=== PATIENT | female | born 1970 | race Caucasian/White ===

== ENCOUNTER 2023-07-04 08:18 | Emergency (ER) | payer OTHER ==
--- NOTE | 2021-05-23 11:32 | Consultation - Surgery ---
History of Present Illness History of Present Illness Patient Consulted On(samantha/time) 05/23/21 11:28 Allergies and Home Medications Allergies Coded Allergies: No Known Drug Allergies (Unverified , 05/23/21) Review of Systems-General Constitutional: no symptoms reported, see HPI; No chills; diaphoresis EENTM: see HPI, no symptoms reported; No ear discharge, No hearing loss, No ear pain, No blurred vision, No double vision, No eye pain, No tearing, No vision loss, No dental problems, No hoarseness, No mouth pain, No mouth swelling, No epistaxis, No nose congestion, No nose pain, No throat pain, No throat swelling, No other Respiratory: no symptoms reported, see HPI; No cough, No dyspnea on exertion, No hemoptysis, No orthopnea, No phlegm, No short of breath, No stridor, No wheezing, No other Physical Exam-General Problems Physical Exam Vital Signs Vital Signs - First Documented 05/22/21 05/22/21 10:16 10:39 Temp 37.5 Pulse 22 Resp 24 B/P (MAP) 130/90 Pulse Ox 99 O2 Delivery Room Air O2 Flow Rate 2.00 Capillary Refill : HEENT: PERRL/EOMI, normal ENT inspection, TMs normal, pharynx normal; No scler al icterus (R), No scleral icterus (L), No pale conjunctivae (R), No pale conjunctivae (L), No photophobia, No TM abnormal (R), No TM abnormal (L), No pharyngeal erythema, No tonsillar exudate, No other Neck: non-tender, full range of motion, supple, normal inspection Diagnosis/Problems Diagnosis/Problems (1) Fall Status: Acute (2) Hip fracture, left Status: Acute Qualifiers: (3) Anemia Status: Chronic Qualifiers: Qualified Codes: D50.0 - Iron deficiency anemia secondary to blood loss (chronic) Clinical Quality Measures Sepsis: Within 3hrs of presentation: Admin fluids, Admin 30ml/kg IBW due to BMI>30, Admin ABX ANIBAL HARRIS MD May 23, 2021 11:32
--- NOTE | 2021-06-06 09:27 | Wound Care Assessment ---
Wound Care Assessment Date Seen by Provider: Jun 06, 2021 Time Seen by Provider: 09:24 Past Medical History: Admits Diabetes Type I, Admits Myocardial Infarction (ppop[l), Admits Raynaud's Diseaase; Denies Diabetes Type II, Denies Deep Vein Thrombosis, Denies Heart Disease, Denies Lupas, Denies Peripheral Artery Disease, Denies Scleroderma, Denies Cancer, Treaments Review of Systems General: Chills, Night Sweats, Fatigue; No Malaise, No Appetite, No Other HEENT: Head Aches, Visual Changes; No Eye Pain, No Ear Pain, No Dysphasia Pulmonary: Dyspnea, Cough, Pleuritic Chest Pain Exam Capillary Refill : JUJU COELHO MD Jun 06, 2021 09:27
--- NOTE | 2021-06-06 09:32 | Progress Note ---
Subjective Time Seen by Provider: 09:32 Review of Systems General: Chills, Night Sweats, Fatigue; No Malaise, No Appetite, No Other HEENT: Head Aches, Visual Changes; No Eye Pain, No Ear Pain, No Dysphasia Pulmonary: Dyspnea, Cough, Pleuritic Chest Pain Objective Exam Last Set of Vital Signs Capillary Refill : Assessment/Plan Assessment/Plan Assess & Plan/Chief Complaint + \' Clinical Quality Measures Sepsis: Within 3hrs of presentation: Admin fluids, Admin 30ml/kg IBW due to BMI>30, Admin ABX, Blood cultures prior to ABX's Diagnosis/Problems Diagnosis/Problems (1) Fall Status: Acute Qualifiers: Qualified Codes: W19.XXXA - Unspecified fall, initial encounter (2) Hip fracture, left Status: Acute Qualifiers: (3) Wound dehiscence (4) Wound abscess (5) Anemia Status: Chronic Qualifiers: Qualified Codes: 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
--- NOTE | 2021-06-14 00:50 | Consultation ---
History of Present Illness History of Present Illness Patient Consulted On(samantha/time) 06/14/21 00:47 Date Seen by Provider: Jun 14, 2021 Time Seen by Provider: 00:50 Reason for Visit: POST DOWNTIME TESTING FOR PDOC TEMPLATE FUNCTIONALITY History of Present Illness N/A Allergies and Home Medications Allergies Coded Allergies: No Known Drug Allergies (Unverified , 05/23/21) Patient Home Medication List Home Medication List Reviewed: Yes Review of Systems-General Constitutional: No diaphoresis, No malaise EENTM: No double vision, No tearing, No nose congestion Respiratory: No orthopnea, No phlegm, No stridor Cardiovascular: No palpitations, No syncope Gastrointestinal: No nausea, No vomiting Genitourinary: No dysuria, No hematuria Skin: No rash Psychiatric/Neurological: See HPI; Denies Anxiety, Denies Depressed, Denies Pre-Existing Deficit, Denies Other All Other Systems Reviewed Negative Unless Noted: Yes Physical Exam-General Problems Physical Exam Vital Signs Capillary Refill : General Appearance: WD/WN, no apparent distress Eyes: Bilateral Eye Normal Inspection, Bilateral Eye PERRL, Bilateral Eye EOMI HEENT: PERRL/EOMI, normal ENT inspection, TMs normal, pharynx normal Neck: non-tender, full range of motion, supple, normal inspection Respiratory: chest non-tender, lungs clear, normal breath sounds, no res piratory distress, no accessory muscle use Cardiovascular: normal peripheral pulses, regular rate, rhythm, no edema, no gallop, no JVD, no murmur Peripheral Pulses: 2+ Carotid (R), 2+ Carotid (L), 2+ Femoral (R), 2+ Femoral (L), 2+ Dorsalis Pedis (R), 2+ Left Dors-Pedis (L), 2+ Radial Pulses (R), 2+ Radial Pulses (L) Gastrointestinal: normal bowel sounds, non tender, soft, no organomegaly, no pulsatile mass Back: normal inspection, no CVA tenderness, no vertebral tenderness Extremities: normal range of motion, non-tender, normal inspection, no pedal edema, no calf tenderness, normal capillary refill, pelvis stable Neurologic/Psychiatric: workers compensation consultant II-XII nml as tested, no motor/sensory deficits, alert, normal mood/affect, oriented x 3 Reflexes: 3+ Bicep (R), 3+ Bicep (L), 3+ Tricep (R), 3+ Tricep (L), 3+ Knee (R), 3+ Knee (L), 3+ Ankle (R), 3+ Ankle (L) Skin: normal color, warm/dry, cyanosis, cool, diaphoresis Lymphatic: no adenopathy ALETHA PA MD Jun 14, 2021 00:50
--- NOTE | 2021-07-23 10:28 | Progress Note - Surgery ---
Subjective Date Seen by a Provider: Jul 23, 2021 Time Seen by a Provider: 10:24 Subjective/Events-last exam TESTING Review of Systems General: Chills; No Night Sweats HEENT: Head Aches; No Visual Changes, No Eye Pain; Ear Pain; No Dysphasia, No Sinus Congestion, No Post Nasal Drip, No Sore Throat, No Other Pulmonary: No Dyspnea, No Cough, No Pleuritic Chest Pain, No Other Cardiovascular: No: Chest Pain, Palpitations, Orthopnea, Paroxysmal Noc. Dyspnea, Edema, Lt Headedness, Other Gastrointestinal: Nausea, Vomiting, Diarrhea; No: Abdominal Pain, Constipation, Melena, Hematochezia, Other Musculoskeletal: neck pain, shoulder pain; No: other, arm pain, back pain, hand pain, leg pain, foot pain Neurological: Weakness, Numbness, Confusion; No: Incoordination, Change in speech, Seizures, Other Objective Exam Capillary Refill : General Appearance: No Apparent Distress, WD/WN; No Anxious, No Chronically ill, No Cachetic, No Mild Distress, No Moderate Distress, No Obese, No Severe Distress, No Thin, No Other HEENT: No Moist Mucous Membranes, No Pale Conjunctivae (L), No Pale Conju nctivae (R) Respiratory: Chest Non Tender (TESTING), Normal Breath Sounds (TESTING), No Accessory Muscle Use Peripheral Pulses: 2+ Carotid (R), 2+ Carotid (L), 2+ Femoral (R), 2+ Femoral (L), 2+ Dorsalis Pedis (R), 2+ Left Dors-Pedis (L), 2+ Radial Pulses (R), 2+ Radial Pulses (L) Gastrointestinal: normal bowel sounds, non tender, soft, no organomegaly, no pulsatile mass Assessment/Plan Assessment/Plan Assessment/Plan SEE PROBLEM LIST+ \' Diagnosis/Problems Diagnosis/Problems (1) Hip fracture, left Status: Acute Assessment & Plan: TO OR IN AM Qualifiers: (2) Fall Status: Acute Assessment & Plan: BED ALARM ORDERED FOR NURSING Qualifiers: Qualified Codes: W19.XXXA - Unspecified fall, initial encounter (3) S/P appy Status: Acute Assessment & Plan: TESTING (4) Gall bladder inflammation (5) Anemia Status: Chronic Qualifiers: Qualified Codes: 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
--- NOTE | 2021-08-13 10:02 | History & Physical ---
HPI History of Present Illness: Source: family (MOTHER), police Exam Limitations: no limitations Date seen by provider: Aug 13, 2021 Time Seen by Provider: 09:58 Attending Physician PCP Consult Date of Admission Home Medications Home Medications Reviewed patient Home Medication Reconciliation performed by pharmacy medication reconciliations surveillance camera technician and/or nursing. Patients Allergies have been reviewed. Allergies Coded Allergies: No Known Drug Allergies (Unverified , 05/23/21) UYK-Yjrmqj-Frqzco Hx Patient Social History Marrital Status: Past Medical History TEST Review of Systems ([facility]) Constitutional: no symptoms reported, see HPI; No chills, No diaphoresis, No dizziness, No fever, No malaise, No weakness, No weight gain, No weight loss, No other EENTM: see HPI, no symptoms reported, blurred vision, eye pain; No ear discharge, No hearing loss, No ear pain, No double vision Respiratory: no symptoms reported, see HPI, cough; No dyspnea on exertion, No hemoptysis, No orthopnea, No phlegm, No short of breath, No stridor, No wheezing, No other Cardiovascular: no symptoms reported, see HPI All Other Systems Reviewed Negative Unless Noted: Yes Physical Exam-([facility]) Physical Exam Vital Signs Capillary Refill : General Appearance: WD/WN, no apparent distress; No mild distress, No moderate distress, No severe distress, No cachetic, No obese, No thin, No other HEENT: PERRL/EOMI, normal ENT inspection, TMs normal, pharynx normal; No scleral icterus (R), No scleral icterus (L), No pale conjunctivae (R), No pale conjunctivae (L), No photophobia, No TM abnormal (R) Neck: non-tender, full range of motion, supple, normal inspection; No carotid bruit, No limited range of motion, No lymphadenopathy (R), No lymphadenopathy (L), No tender lateral, No tender midline, No thyromegaly, No other Gastrointestinal: normal bowel sounds, non tender, soft, no organomegaly, no pulsatile mass; No abnormal bowel sounds, No distended, No guarding, No rebound, No tenderness, No hernia, No mass, No hepatomegaly, No spleenomegaly, No other Assessment/Plan Assessment/Plan Admission Status: Observation (1) Fall Status: Acute Assessment & Plan: BED ALARM Qualifiers: Qualified Codes: W19.XXXA - Unspecified fall, initial encounter (2) Hip fracture, left Status: Acute Assessment & Plan: PLANNED TO GO TO OR TOMORROW Qualifiers: (3) Anemia Status: Chronic Assessment & Plan: CHECK LABS, START INFUSION Qualifiers: Qualified Codes: D50.8 - Other iron deficiency anemias (4) Wound dehiscence (5) Wound abscess (6) Gall bladder inflammation (7) CHF (congestive heart failure) (8) CHF (congestive heart failure) Status: Chronic Qualifiers: Qualified Codes: I50.22 - Chronic systolic (congestive) heart failure Clinical Quality Measures Sepsis: Within 3hrs of presentation: Admin fluids, Admin 30ml/kg IBW due to BMI>30, Admin ABX, Blood cultures prior to ABX's, D/C Instructions given to patient, Focus exam, Lactate level, Vasopressin therapy ALETHA PA MD Aug 13, 2021 10:02
--- NOTE | 2021-08-13 10:13 | Progress Note ---
Objective Exam Last Set of Vital Signs Capillary Refill : General: Alert, Oriented X3, No Acute Distress HEENT: Atraumatic, Mucous Memb Moist/Mcgregor Neck: Supple Heart: Regular Rate Abdomen: Normal Bowel Sounds, Soft, No Tenderness, No Hepatosplenomegaly, No Masses Assessment/Plan Assessment/Plan (1) Fall Status: Acute Qualifiers: Qualified Codes: W19.XXXA - Unspecified fall, initial encounter (2) Hip fracture, left Status: Resolved Assessment & Plan: REVISION COMPLETE Qualifiers: (3) Anemia Status: Chronic Assessment & Plan: CHECK LABS, START INFUSION Qualifiers: Qualified Codes: D50.8 - Other iron deficiency anemias (4) Wound dehiscence (5) Wound abscess (6) Gall bladder inflammation (7) CHF (congestive heart failure) (8) CHF (congestive heart failure) Status: Chronic Qualifiers: Qualified Codes: I50.22 - Chronic systolic (congestive) heart failure ALETHA PA MD Aug 13, 2021 10:13
--- NOTE | 2021-09-24 09:17 | History & Physical-Hospitalist ---
History of Present Illness Date Seen 09/24/21 Time Seen by a Provider: 09:13 Attending Physician PCP Referring Physician Date of Admission Home Medications & Allergies Home Medications Reviewed patient Home Medication Reconciliation performed by pharmacy medication reconciliations nuclear engineering technician and/or nursing. Patients Allergies have been reviewed. Allergies Allergies Coded Allergies No Known Drug Allergies (Unverified05/23/21) Past Dskuqwa-Xmdpxz-Qnncwa Hx Patient Social History Marrital Status: Employed/Student: employed Tobacco Use?: Yes Tobacco type used: Cigars Smoking Status: Current Everyday Smoker Smokeless Tobacco Frequency: Current Everyday User, Heavy User, User Current Status Unk Use of E-Cig and/or Vaping Ramses: User Current Status Unk (TESTING) Alcohol type: Beer (TEST) Past Medical History TEST Review of Systems Constitutional: no symptoms reported, see HPI; No chills, No diaphoresis, No d izziness; fever; No malaise EENTM: see HPI, no symptoms reported; No ear discharge, No hearing loss, No ear pain, No blurred vision, No double vision, No eye pain, No tearing, No vision loss, No dental problems, No hoarseness, No mouth pain, No mouth swelling, No epistaxis, No nose congestion, No nose pain, No throat pain, No throat swelling, No other Respiratory: no symptoms reported, see HPI; No cough, No dyspnea on exertion, No hemoptysis, No orthopnea, No phlegm, No short of breath, No stridor, No wheezing, No other Physical Exam Physical Exam Vital Signs Capillary Refill : Height, Weight, BMI Height: '" Weight: lbs. oz. kg; BMI Method: General Appearance: No Apparent Distress, WD/WN; No Anxious, No Chronically ill, No Cachetic, No Mild Distress, No Moderate Distress, No Obese, No Severe Distress, No Thin, No Other HEENT: PERRL/EOMI, TMs Normal, Normal ENT Inspection, Pharynx Normal, Moist Mucous Membranes; No Pale Conjunctivae (L), No Pale Conjunctivae (R), No Pharyngeal Erythema, No Photophobia, No Scleral Icterus (L), No Scleral Icterus (R), No TM Abnormal (L), No TM Abnormal (R), No Tonsillar Exudate, No Tonsillar Enlargement, No Other Neck: Full Range of Motion, Normal Inspection, Non Tender, Supple Results Results/Procedures Labs Patient resulted labs reviewed. Imaging: Reviewed Imaging Films, Reviewed Imaging Report Assessment/Plan Admission Diagnosis Admission Status: Observation Diagnosis/Problems Diagnosis/Problems (1) Hip fracture, left Status: Resolved Assessment & Plan: TO OR IN AM Qualifiers: Fracture type: closed Fracture healing: with routine healing Resolution Date/Time: 08/13/21 @ 10:12 (2) Fall Status: Acute Assessment & Plan: BED ALARM ORDERED FOR NURSING Qualifiers: Encounter type: initial encounter Qualified Codes: W19.XXXA - Unspecified fall, initial encounter (3) S/P appy Status: Acute Assessment & Plan: TESTING (4) Gall bladder inflammation (5) Anemia Status: Chronic Qualifiers: Anemia type: iron deficiency Iron deficiency anemia type: inadequate dietary iron intake Qualified Codes: D50.8 - Other iron deficiency anemias Clinical Quality Measures Sepsis: Within 3hrs of presentation: Admin fluids, Admin 30ml/kg IBW due to BMI>30, Admin ABX, Blood cultures prior to ABX's, D/C Instructions given to patient, Focus exam Copy Copies To 1: LOLA MIDDLETON JOHN E MD Sep 24, 2021 09:17
--- NOTE | 2021-11-21 12:59 | OB Labor & Delivery Record ---
L&D History Complications Events: No Care, Labor <37 wks (tst), Prolnged Rupture Membrane (test) Operative Indications (Cesarea: N/A-Vaginal Delivery Delivery Summary Summary Estimated blood loss (mL): less than 500 ELLIOTT KNOX MD Nov 21, 2021 12:59
--- NOTE | 2021-11-21 13:06 | OB Triage Report ---
Diagnosis/Problems Diagnosis/Problems (1) contractions (2) Anemia affecting Status: Acute Qualifiers: Qualified Codes: O99.011 - Anemia complicating , first trimester (3) Vaginal abrasion Status: Chronic Qualifiers: Qualified Codes: S30.814D - Abrasion of vagina and vulva, subsequent encounter ELLIOTT KNOX MD Nov 21, 2021 13:06
--- NOTE | 2021-11-21 13:08 | Hysteroscopy D&C Operative ---
Hysteroscopy D&C Note Hysteroscopy D&C Note Date of Procedure: 11/21/21 Preoperative Diagnosis: Ndt Test is a (51 /Para / ,Gestational Age (wks) with [] Postoperative Diagnosis: Same Surgeon: ELLIOTT KNOX Tube Repairer: [none] Anesthesia: General Name of the Procedure: Hysteroscopy, dilatation and curettage Findings of the Procedure: [] EBL: Minimal Specimen(s) collected/removed: Endometrial Curettings Complications: None[] Condition: []Stable to recovery room Indications for Procedure: /Para / presenting with []. Risks, benefits and alternatives to the proposed procedure were discussed with the patient and informed consent was obtained. Description of Procedure: The patient was taken to the operating room and placed in the dorsal supine position. General anesthesia was obtained without difficulty by our anesthesia colleagues. Her legs were placed in stirrups and she was moved to the dorsal lithotomy position. The vagina, perineum and vulva were prepped and draped in the typical sterile fashion. The bladder was emptied A weighted speculum was placed in the vaginal vault and the anterior lip of the cervix was grasped with a single-tooth tenaculum. The cervix was gently dilated with [] dilators to accommodate the hysteroscope. The hysteroscope was inserted and [] intrinsic lesions were seen. A fragmented circumferential sharp curettage was completed and sent to pathology. The procedure was complete and all instruments were removed from the vagina. Sponge and instrument counts were correct. The patient was awakened from anesthesia and taken to the recovery room in stable condition. ELLIOTT KNOX MD Nov 21, 2021 13:08
--- NOTE | 2022-02-04 11:12 | Consultation - Hospitalist ---
HPI History of Present Illness: Date Seen 02/04/22 Attending Physician PCP Referring Physician Date of Admission Home Medications & Allergies Home Medications Reviewed patient Home Medication Reconciliation performed by pharmacy medication reconciliations lift team technician and/or nursing. Patients Allergies have been reviewed. Allergies Allergies Coded Allergies No Known Drug Allergies (Unverified05/23/21) Past Yvqgged-Jidkos-Eklzos Hx Patient Social History Marrital Status: Employed/Student: employed Tobacco Use?: Yes Tobacco type used: Cigars Smoking Status: Current Everyday Smoker Smokeless Tobacco Frequency: Current Everyday User, Heavy User, User Current Status Unk Use of E-Cig and/or Vaping Ramses: User Current Status Unk (TESTING) Alcohol type: Beer (TEST) Past Medical History TEST Review of Systems Constitutional: no symptoms reported Physical Exam Physical Exam Vital Signs Capillary Refill : Height, Weight, BMI Height: '" Weight: lbs. oz. kg; BMI Method: General Appearance: No Apparent Distress, WD/WN; No Anxious, No Chronically ill, No Cachetic, No Mild Distress, No Moderate Distress, No Obese, No Severe Distress, No Thin, No Other Eyes: Bilateral Eye Normal Inspection, Bilateral Eye PERRL, Bilateral Eye EOMI HEENT: PERRL/EOMI, TMs Normal, Normal ENT Inspection, Pharynx Normal, Moist Mucous Membranes; No Pale Conjunctivae (L), No Pale Conjunctivae (R), No Pharyngeal Erythema, No Photophobia, No Scleral Icterus (L), No Scleral Icterus (R), No TM Abnormal (L), No TM Abnormal (R), No Tonsillar Exudate, No Tonsillar Enlargement, No Other Neck: Full Range of Motion, Normal Inspection, Non Tender, Supple Respiratory: Chest Non Tender (TESTING), Normal Breath Sounds (TESTING), No Accessory Muscle Use Reflexes: 3+ Bicep (R), 3+ Bicep (L), 3+ Tricep (R), 3+ Tricep (L), 3+ Knee (R), 3+ Knee (L), 3+ Ankle (R), 3+ Ankle (L) Results Results/Procedures Labs Patient resulted labs reviewed. Imaging: Reviewed Imaging Films, Reviewed Imaging Report Diagnosis/Problems Diagnosis/Problems (1) Acute renal failure (ARF) Status: Acute Qualifiers: Acute renal failure type: with acute renal cortical necrosis Qualified Codes: N17.1 - Acute kidney failure with acute cortical necrosis (2) Sepsis Status: Acute Qualifiers: Sepsis type: sepsis due to unspecified organism Sepsis acute organ dysfunction status: with acute organ dysfunction Severe sepsis acute organ dysfunction type: acute renal failure Acute renal failure type: with acute renal cortical necrosis Severe sepsis shock status: with septic shock Qualified Codes: A41.9 - Sepsis, unspecified organism; R65.21 - Severe sepsis with septic shock; N17.1 - Acute kidney failure with acute cortical necrosis (3) Chronic hyperkalemia Status: Chronic ALBERT JETER MD February 04, 2022 11:12
--- NOTE | 2022-04-17 10:37 | History & Physical ---
HPI History of Present Illness: 52 year old female presents to clinic today fro complaints of Source: patient Time Seen by Provider: 10:32 Attending Physician PCP Admitting Physician: Attending Physician: Consult Date of Admission Home Medications Home Medications Reviewed patient Home Medication Reconciliation performed by pharmacy medication reconciliations security installation sales technician and/or nursing. Patients Allergies have been reviewed. Allergies Coded Allergies: No Known Drug Allergies (Unverified , 05/23/21) CYN-Bigtsn-Setgjz Hx Patient Social History Marrital Status: Employed/Student: employed Smoking Status: Current Everyday Smoker Tobacco type used: Cigars Past Medical History TEST Review of Systems ([facility]) Respiratory: cough; No hemoptysis, No orthopnea; phlegm; No stridor; wheezing Gastrointestinal: RUQ, LUQ, RLQ, LLQ, no symptoms reported, see HPI, abdominal pain, constipation, diarrhea, dysphagia, hematemesis, heartburn, jaundice, loss of appetite, melena, nausea, vomiting, other Physical Exam-([facility]) Physical Exam Vital Signs Capillary Refill : Assessment/Plan Assessment/Plan (1) Fall Status: Acute Qualifiers: Qualified Codes: W19.XXXA - Unspecified fall, initial encounter (2) Hip fracture, left Status: Resolved Qualifiers: (3) Anemia Status: Chronic Qualifiers: Qualified Codes: D50.8 - Other iron deficiency anemias (4) Wound dehiscence (5) Wound abscess (6) Gall bladder inflammation Status: Acute Assessment & Plan: Appendectomy (7) CHF (congestive heart failure) (8) CHF (congestive heart failure) Status: Chronic Qualifiers: Qualified Codes: I50.22 - Chronic systolic (congestive) heart failure (9) Hypertension FREDERICK SURESH Apr 17, 2022 10:37
--- NOTE | 2022-04-17 14:17 | History & Physical ---
History of Present Illness History of Present Illness Reason for visit/HPI Testing Date of Admission Date Seen by a Provider: Apr 17, 2022 Time Seen by a Provider: 14:12 I consulted on this patient on 04/17/22 14:11 Attending Physician Admitting Physician Admitting Physician: Attending Physician: Consult Allergies and Home Medications Allergies Coded Allergies: No Known Drug Allergies (Unverified , 05/23/21) Patient Home Medication List Acetaminophen (Tylenol Arthritis) 650 Mg Tablet.er, 650 MG PO HS Prescribed by: ALETHA PA on 12/05/21 1043 Ibuprofen (Ibuprofen) 600 Mg Tablet, 600 MG PO Q6H Prescribed by: ALETHA PA on 12/14/21 2157 Past Kfswjml-Yoinbb-Zyeuii Hx Patient Social History Marrital Status: Employed/Student: employed Tobacco Use?: Yes Tobacco type used: Cigars Smoking Status: Current Everyday Smoker Smokeless Tobacco Frequency: Current Everyday User, Heavy User, User Current Status Unk Use of E-Cig and/or Vaping Ramses: User Current Status Unk (TESTING) Alcohol type: Beer (TEST) Past Medical History TEST Physical Exam Vital Signs Capillary Refill : Height, Weight, BMI Height: '" Weight: lbs. oz. kg; BMI Method: Assessment/Plan Assessment and Plan Problems: (1) Acute renal failure (ARF) Status: Acute Qualifiers: Qualified Codes: N17.1 - Acute kidney failure with acute cortical necrosis (2) Sepsis Status: Acute Qualifiers: Qualified Codes: A41.9 - Sepsis, unspecified organism; R65.21 - Severe sepsis with septic shock; N17.1 - Acute kidney failure with acute cortical necrosis (3) Chronic hyperkalemia Status: MARCO See Apr 17, 2022 14:17
--- NOTE | 2022-05-10 09:43 | Progress Note-Pre Operative ---
Pre-Operative Progress Note Date of Available H&P: May 01, 2022 Date H&P Reviewed: May 10, 2022 Time H&P Reviewed: 09:41 History & Physical: H&P Reviewed, Patient Examed, Changes noted below Pre-Operative Diagnosis: ECC ANNIE VALENCIA DDS May 10, 2022 09:42
--- NOTE | 2022-05-10 09:46 | Dentistry Operative Report ---
Operative Record Patient: David Harding : 70 Surgery Date: 05/10/22 Surgeon: Dr. Hunter Velázquez, VANIA Dental Inspector Finishing: Colten Gay Anesthesia: [ ] No drains or sponges were left in place. Sponge count (including one oropharyngeal throat pack) verified at end of case. Estimated blood loss: 5 cc. No specimens submitted for examination. Complications: None. Pre-Operative Diagnosis: Multiple dental caries and acute situational anxiety in the dental clinic Post-Operative Diagnosis: Multiple dental caries and acute situational anxiety in the dental clinic Start time: End Time: S: This is a 6 -year-old child with extensive dental restorative needs and acute situational anxiety in the dental clinic environment; therefore, full mouth dental rehabilitation under general anesthesia was indicated. O: Radiographs: 2 bitewings, upper and lower occlusals, and 4 periapicals were exposed and interpreted. Radiographic Findings: ECC Clinical Findings: Severe clinical caries with multiple abscesses A: Multiple dental caries and acute situational anxiety in the dental clinic environment. P: Operation Performed: Full mouth dental rehabilitation under general anesthesia. The patient was premedicated with oral Versed, brought into the operating room, and placed on the operating table in supine position. Following mask induction with sevoflurane, nitrous oxide, and oxygen, an intravenous line was established in the dorsum of the hand, and a naso- tracheal intubation was successfully completed. The patient was positioned and draped in the standard and customary fashion for dental surgery; shielded with a lead apron; and the above listed radiographs were taken. An oropharyngeal throat pack was placed. Comprehensive oral evaluation and full mouth prophylaxis was completed. The following treatments were then completed with a mouth prop and rubber dam isolation by quadrant where appropriate: #____ Sealant: Etched tooth for 20 sec, haji, Clinpro sealant placed and light cured for 20 seconds. #____ - Anterior Composite Strip [place]/Zirconia [place]: caries removed; reduced and shaped tooth; cemented with Fuji II cement; Sizes: #____- SSC: [place] prep; caries removed; reduced and shaped tooth; cemented with Rely-X. SSC sizes: # - Pulpotomy: [place] prep; caries removed; accessed pulpal chamber; formocresol soaked cotton pellet placed for 5 mins, tempit placed on hemostatic pulp stumps to occlude pulp chamber, tooth restored with SSC. # - Pulpectomy: [place] prep, caries removed; accessed pulpal chamber; filed to apex with hand files, copious irrigation with sodium hypochlorite, dried with paper points, filled canals with Vitapex, occluded chamber with Tempit. # - LSTR: [place] prep, caries removed, accessed pulpal chamber, placed Triple Antibiotic Paste on hemostatic/necrotic pulp stumps, Fuji II placed to occlude chamber, restored with SSC. # - Extraction: Soft tissue infiltrated with ___ cc 2% Lidocaine with 1:100,000 epinephrine; relieved cuff and papillae; elevated with 301; delivered with 150s / 151s forceps; copious irrigation with sterile saline, hemostasis achieved. #____ - Space Maintainer: Chairside Denovo band and loop/distal shoe space maintainer fit to proper contours and correct adaptation; cemented with Rely-X cement. Band Size: Occlusion was verified. The oral cavity was then rinsed, evacuated, and examined before the oropharyngeal throat pack was removed. Fluoride varnish was applied. Sponge count was verified. The patient was extubated in the operating room; transported to PACU with protective reflexes intact; and discharged in good condition. Hunter Velázquez, VANIA Vicente DDS (Resident) ANNIE VICENTE DDS May 10, 2022 09:46
--- NOTE | 2022-05-10 09:48 | Pedatric Dental ED Consult ---
Pedatric Dental ED Consult After Hours Emergency Call note: Ndt Test 70 [facility] Patient of record: [ ] Who's with the patient Reason for Visit: describe the incident, What happened, When did it happen, What is the status of the patient LOC Soft tissue injuries: [ ] Diagnostic Imaging: [ ] Diagnosis: [ ] Radiographic interpretation: [ ] Prognosis: [ ] Treatment: [ ] Post-op instructions: [ ] RX: [ ] Follow up: [ ] ANNIE VALENCIA DDS May 10, 2022 09:48
--- NOTE | 2022-05-10 09:49 | Progress Note ---
Standard Progress Note Progress Notes/Assess & Plan Time Seen by a Provider: 09:48 ANNIE VALENCIA DDS May 10, 2022 09:49
--- NOTE | 2022-05-10 09:56 | Progress Note-Pre Operative ---
Pre-Operative Progress Note Date of Available H&P: May 08, 2022 Date H&P Reviewed: May 10, 2022 Time H&P Reviewed: 09:55 History & Physical: H&P Reviewed, Patient Examed, Changes noted below Pre-Operative Diagnosis: ANNIE RIVERS DDS May 10, 2022 09:56
--- NOTE | 2022-05-10 09:58 | Dentistry Operative Report ---
Operative Record Patient: David Harding : 70 Surgery Date: 05/10/22 Surgeon: Dr. Hunter Velázquez, VANIA Dental Cigarette Making Examiner: Colten Gay Anesthesia: [ ] No drains or sponges were left in place. Sponge count (including one oropharyngeal throat pack) verified at end of case. Estimated blood loss: 5 cc. No specimens submitted for examination. Complications: None. Pre-Operative Diagnosis: Multiple dental caries and acute situational anxiety in the dental clinic Post-Operative Diagnosis: Multiple dental caries and acute situational anxiety in the dental clinic Start time: End Time: S: This is a ___ -year-old child with extensive dental restorative needs and acute situational anxiety in the dental clinic environment; therefore, full mouth dental rehabilitation under general anesthesia was indicated. O: Radiographs: 2 bitewings, upper and lower occlusals, and 4 periapicals were exposed and interpreted. Radiographic Findings: [ ] Clinical Findings: [ ] A: Multiple dental caries and acute situational anxiety in the dental clinic environment. P: Operation Performed: Full mouth dental rehabilitation under general anesthesia. The patient was premedicated with oral Versed, brought into the operating room, and placed on the operating table in supine position. Following mask induction with sevoflurane, nitrous oxide, and oxygen, an intravenous line was established in the dorsum of the hand, and a naso- tracheal intubation was successfully completed. The patient was positioned and draped in the standard and customary fashion for dental surgery; shielded with a lead apron; and the above listed radiographs were taken. An oropharyngeal throat pack was placed. Comprehensive oral evaluation and full mouth prophylaxis was completed. The following treatments were then completed with a mouth prop and rubber dam isolation by quadrant where appropriate: #____ Sealant: Etched tooth for 20 sec, haji, Clinpro sealant placed and light cured for 20 seconds. #____-Resin Composite Orthodox: Cavity Prep, caries excavated, etched for 20 seconds with 35% phosphoric acid; haji (y/n) restored with trimmed and adjusted occlusion. Sealed margins of taoism with clinpro sealant. #____ - Anterior Composite Strip [place]/Zirconia [place]: caries removed; reduced and shaped tooth; cemented with Fuji II cement; Sizes: #____- SSC: [place] prep; caries removed; reduced and shaped tooth; cemented with Rely-X. SSC sizes: # - Pulpotomy: [place] prep; caries removed; accessed pulpal chamber; formocresol soaked cotton pellet placed for 5 mins, tempit placed on hemostatic pulp stumps to occlude pulp chamber, tooth restored with SSC. # - Pulpectomy: [place] prep, caries removed; accessed pulpal chamber; filed to apex with hand files, copious irrigation with sodium hypochlorite, dried with paper points, filled canals with Vitapex, occluded chamber with Tempit. # - LSTR: [place] prep, caries removed, accessed pulpal chamber, placed Triple Antibiotic Paste on hemostatic/necrotic pulp stumps, Fuji II placed to occlude chamber, restored with SSC. # - Extraction: Soft tissue infiltrated with ___ cc 2% Lidocaine with 1:100,000 epinephrine; relieved cuff and papillae; elevated with 301; delivered with 150s / 151s forceps; copious irrigation with sterile saline, hemostasis achieved. #____ - Space Maintainer: Chairside Denovo band and loop/distal shoe space maintainer fit to proper contours and correct adaptation; cemented with Rely-X cement. Band Size: Occlusion was verified. The oral cavity was then rinsed, evacuated, and examined before the oropharyngeal throat pack was removed. Fluoride varnish was applied. Sponge count was verified. The patient was extubated in the operating room; transported to PACU with protective reflexes intact; and discharged in good condition. VANIA Ansari VISHAL M DDS May 10, 2022 09:58
--- NOTE | 2022-05-14 17:59 | Progress Note - Surgery ---
LAYA PALACIOS 05/14/22 1759: Objective Exam Capillary Refill : General Appearance: No Apparent Distress, WD/WN; No Anxious, No Chronically ill, No Cachetic, No Mild Distress, No Moderate Distress, No Obese, No Severe Distress, No Thin, No Other HEENT: PERRL/EOMI, TMs Normal, Normal ENT Inspection, Pharynx Normal, Moist Mucous Membranes; No Pale Conjunctivae (L), No Pale Conjunctivae (R), No Pharyngeal Erythema, No Photophobia, No Scleral Icterus (L), No Scleral Icterus (R), No TM Abnormal (L), No TM Abnormal (R), No Tonsillar Exudate, No Tonsillar Enlargement, No Other Neck: Full Range of Motion, Normal Inspection, Non Tender, Supple Respiratory: Chest Non Tender (TESTING), Normal Breath Sounds (TESTING), No Accessory Muscle Use Peripheral Pulses: 2+ Carotid (R), 2+ Carotid (L), 2+ Femoral (R), 2+ Femoral (L), 2+ Dorsalis Pedis (R), 2+ Left Dors-Pedis (L), 2+ Radial Pulses (R), 2+ Radial Pulses (L) Gastrointestinal: normal bowel sounds, non tender, soft, no organomegaly, no pulsatile mass; No abnormal bowel sounds, No distended, No guarding, No rebound, No tenderness, No hernia, No mass, No hepatomegaly, No spleenomegaly, No other Assessment/Plan Assessment/Plan Assessment/Plan SEE PROBLEM LIST+ \' ALETHA HERRON MD 05/14/22 1800: Supervisory-Addendum Brief Verification & Attestation Participated in pt care: history, MDM, physical Personally performed: exam, history, MDM, supervision of care Care discussed with: Medical Student Procedures: n/a Results interpretation: Verified all documentation Verification and Attestation of Medical Student E/M Service A medical student performed and documented this service in my presence. I r eviewed and verified all information documented by the medical student and made modifications to such information, when appropriate. I personally performed the physical exam and medical decision making. Aletha Herron May 14, 2022,18:00 LAYA PALACIOS May 14, 2022 17:59 ALETHA HERRON MD May 14, 2022 18:00
--- NOTE | 2022-06-28 07:39 | Labor Progress Note ---
Labor Progress Note Labor Progress Note Time Seen by Provider: 07:15 Subjective: Pt denies complaints. Objective: (Can we insert 24 hour vitals here?) Cervical exam: [] Consistency: [] Position: [] Presentation: [] heart tones: [] beats per minute, [] variability, [] reactive Tocometer: [] ctx/10 minutes Assessment/Plan: Ndt Test is a (52 /Para / ,Gestational Age (wks) here for []. CEFM/TOCO Continue pitocin/[] Anesthesia: [] Anticipate vaginal delivery. АЛЕКСАНДР PEDRO III, DO Jun 28, 2022 07:39
--- NOTE | 2023-01-10 07:18 | OB Triage Report ---
Diagnosis/Problems Diagnosis/Problems (1) Assessment & Plan: n/a Qualifiers: Qualified Codes: Z3A.26 - 26 weeks gestation of (2) Anemia affecting Status: Acute Assessment & Plan: test Qualifiers: Qualified Codes: O99.013 - Anemia complicating , third trimester MARCELA ROY MD Jan 10, 2023 07:18
--- NOTE | 2023-01-10 07:20 | OB Labor & Delivery Record ---
L&D History Complications Events: No Care, Labor <37 wks (tst), Prolnged Rupture Membrane (test) Operative Indications (Cesarea: N/A-Vaginal Delivery L&D Stage1 Monitors and Tracing Station: -2 (test) Presentation: Vertex (on BSUS) L&D Stage3 Placenta Delivery Placenta Delivery: Spontaneous MARCELA ROY MD Jan 10, 2023 07:19
--- NOTE | 2023-01-10 07:23 | History & Physical-OB/GYN ---
History of Present Illness History of Present Illness Date of Admission I consulted on this patient on 01/10/23 07:20 Attending Physician Admitting Physician Admitting Physician: Attending Physician: Consult Allergies and Home Medications Allergies Coded Allergies: No Known Drug Allergies (Unverified , 05/23/21) Patient Home Medication List Acetaminophen (Tylenol Arthritis) 650 Mg Tablet.er, 650 MG PO HS Prescribed by: ALETHA PA on 12/05/21 1043 Amoxicillin (Amoxicillin) 250 Mg/5 Ml Susp, 1 TSP PO TID Prescribed by: Palmer Vicente on 05/10/22 0952 Ibuprofen (Ibuprofen) 600 Mg Tablet, 600 MG PO Q6H Prescribed by: ALETHA PA on 12/14/21 2157 Past Jkmckob-Cuwxut-Ikptbd Hx Patient Social History Marrital Status: Employed/Student: employed Smoking Status: Current Everyday Smoker Tobacco type used: Cigars Review of Systems Constitutional: no symptoms reported, see HPI; No chills, No diaphoresis, No dizziness, No fever, No malaise, No weakness, No weight gain, No weight loss, No other EENTM: blurred vision; No see HPI, No no symptoms reported, No ear discharge, No hearing loss, No ear pain, No double vision, No eye pain, No tearing, No vision loss, No dental problems, No hoarseness, No mouth pain, No mouth swelling, No epistaxis, No nose congestion, No nose pain, No throat pain, No throat swelling, No other Respiratory: no symptoms reported, see HPI; No cough, No dyspnea on exertion; hemoptysis, orthopnea, phlegm, short of breath, stridor, wheezing, other Gastrointestinal: see HPI : Yes All Other Systems Reviewed Negative Unless Noted: Yes Physical Exam Physical Exam Vital Signs Capillary Refill : Cardiovascular: Diastolic Murmur, Systolic Murmur, Extra Beats, Friction Rub Assessment/Plan Assessment and Plan test Diagnosis/Problems Diagnosis/Problems (1) MARCELA ROY MD Jan 10, 2023 07:23
--- NOTE | 2023-01-10 07:24 | Labor Progress Note ---
Labor Progress Note Labor Progress Note Subjective: Pt denies complaints. Objective: (Can we insert 24 hour vitals here?) Cervical exam: [] Consistency: [] Position: [] Presentation: [] heart tones: [] beats per minute, [] variability, [] reactive Tocometer: [] ctx/10 minutes Assessment/Plan: Ndt Test is a (52 /Para / ,Gestational Age (wks) here for []. CEFM/TOCO Continue pitocin/[] Anesthesia: [] Anticipate vaginal delivery. MARCELA ROY MD Jan 10, 2023 07:24
--- NOTE | 2023-01-10 07:24 | Progress Note-Pre Operative ---
Pre-Operative Progress Note Time H&P Reviewed: 09:55 History & Physical: H&P Reviewed, Patient Examed, No changes noted, Changes noted below Pre-Operative Diagnosis: distress MARCELA ROY MD Jan 10, 2023 07:24
--- NOTE | 2023-01-10 07:25 | OB/GYN Operative Report ---
Operative Report Date of Procedure:Jan 10, 2023 Preoperative Diagnosis: [] Postoperative Diagnosis: [] Name of the Procedure: [] Surgeon: Marcela Land Wallpaper Hanger(s): none Anesthesia: [] Indications for Procedure: [] Findings of the Procedure: [] Name and Description of the Procedure: [] Complications: None Disposition: [] MARCELA LAND MD Jan 10, 2023 07:25
--- NOTE | 2023-01-10 07:28 | OB Labor & Delivery Record ---
Vag Delivery Note Vag Delivery Note Date of Delivery: 01/10/23 Preoperative Diagnosis: Ndt Test is a (52 /Para / ,Gestational Age (wks)with [ ] Postoperative Diagnosis: Same Surgeon: MARCELA ROY Lead Pharmacy Technician: [] Anesthesia: [] Delivery Type: [] Findings: [] Viable [] , apgars [], weight [] Lacerations: [ ] Intact placenta with 3 vessel cord. No nuchal cord, body cord or shoulder dystocia Estimated Blood Loss: [] ml Complications: None Condition: Stable Description of Procedure: The patient is a 52 year old female who presented []. She was admitted and informed consent was obtained. Her labor course was [ ]. She progressed to complete dilatation and began to push. She was then set up for delivery. The 's head was delivered atraumatically in the [] position. The shoulders and remainder of the infant's body were then delivered without difficulty. Upon delivery, the infant was vigorous and placed on maternal chest and the mouth and nares were bulb suctioned. After a delay cord was doubly clamped and cut and the remained on maternal chest. An intact placenta with 3-vessel cord delivered via Hood and there was found to be minimal bleeding.~ Vigorous fundal massage was performed and the fundus was found to be firm. IV oxytocin was given. Examination of the vagina and perineum revealed a [] laceration repaired in the usual fashion with 3-0 vicryl rapide suture. Following the repair, sponge, instrument and needle counts were correct. Mom and baby were both in stable condition in the labor suite. MARCELA ROY MD Jan 10, 2023 07:28
--- NOTE | 2023-01-10 07:29 | Discharge Inst-Women's Service ---
Discharge Inst-Women's Serv Activity Activity: Activity as Tolerated NO SMOKING: NO SMOKING Skin/Wound Care Bathing Instructions: MARCELA Thomas MD Jan 10, 2023 07:29
--- NOTE | 2023-03-19 15:02 | ED Abdominal Pain ---
General Chief Complaint: Conscious Sedation Stated Complaint: TESTING History of Present Illness Date Seen by Provider: Mar 19, 2023 Time Seen by Provider: 15:02 Allergies and Home Medications Allergies Coded Allergies: No Known Drug Allergies (Unverified , 05/23/21) Patient Home Medication List Home Medication List Reviewed: Yes Acetaminophen (Tylenol Arthritis) 650 Mg Tablet.er, 650 MG PO HS Prescribed by: ALETHA PA on 12/05/21 1043 Amoxicillin (Amoxicillin) 250 Mg/5 Ml Susp, 1 TSP PO TID Prescribed by: Annie Valencia on 05/10/22 0952 Ibuprofen (Ibuprofen) 600 Mg Tablet, 600 MG PO Q6H Prescribed by: ALETHA PA on 12/14/21 2157 Ibuprofen (Ibuprofen) 600 Mg Tablet, 600 MG PO Q6H Prescribed by: ALETHA PA on 01/22/23 1007 Last Action: New Order Review of Systems Review of Systems Constitutional: no symptoms reported, see HPI; No chills, No diaphoresis, No dizziness, No fever, No malaise, No weakness, No weight gain, No weight loss, No other Skin: No rash Psychiatric/Neurological: See HPI; Denies Anxiety, Denies Depressed, Denies Pre-Existing Deficit, Denies Other Past Shzblxk-Bwavck-Ynoiya Hx Patient Social History Tobacco Use?: Yes Tobacco type used: Cigars Smoking Status: Current Everyday Smoker Smokeless Tobacco Frequency: Current Everyday User, Heavy User, User Current Status Unk Use of E-Cig and/or Vaping Ramses: User Current Status Unk (TESTING) Alcohol type: Beer (TEST) Physical Exam Vital Signs Capillary Refill : Height/Weight/BMI Height: '" Weight: lbs. oz. kg; BMI Method: General Appearance: WD/WN, no apparent distress HEENT: PERRL/EOMI, normal ENT inspection, TMs normal, pharynx normal Neck: non-tender, full range of motion, supple, normal inspection Respiratory: chest non-tender, lungs clear, normal breath sounds, no respiratory distress, no accessory muscle use Cardiovascular: normal peripheral pulses, regular rate, rhythm, no edema, no gallop, no JVD, no murmur Peripheral Pulses: 2+ Carotid (R), 2+ Carotid (L), 2+ Femoral (R), 2+ Femoral (L), 2+ Dorsalis Pedis (R), 2+ Left Dors-Pedis (L), 2+ Radial Pulses (R), 2+ Radial Pulses (L) Gastrointestinal: normal bowel sounds, non tender, soft, no organomegaly, no pulsatile mass Rectal: normal exam Genital/Rectal: normal genital exam Extremities: normal range of motion, non-tender, normal inspection, no pedal edema, no calf tenderness, normal capillary refill, pelvis stable Pelvic: normal external exam, normal adnexa, no cerv. motion tender, no masses, discharge Neurologic/Psychiatric: disk operator II-XII nml as tested, no motor/sensory deficits, alert, normal mood/affect, oriented x 3 Skin: normal color, warm/dry Lymphatic: no adenopathy Progress/Results/Core Measures Results/Orders My Orders Orders - ALETHA PA MD Insert Feeding Tube (07/11/21 10:16) Feeding Tube Discontinue (07/11/21 10:16) Covid-19 Vacc, Mrna(Pfizer)/Pf (Pfizer C (07/17/21 13:00) Ed Admission (Communication) (07/30/21 15:31) Attending Discharge Inpt/Inobs (10/24/21 10:52) Isolation Central Supply Req (10/25/21 07:58) Isolation Central Supply Req (10/25/21 08:19) Isolation Central Supply Req (10/25/21 08:28) Isolation Central Supply Req (10/25/21 10:34) Isolation Central Supply Req (10/25/21 11:44) Iohexol Injection (Omnipaque 350 Mg/Ml 1 (10/26/21 14:00) Received Contrast (Hold Metformin- Contr (10/26/21 14:00) Sodium Chloride Flush (Catheter Flush Sy (10/26/21 14:00) Ns (Ivpb) (Sodium Chloride 0.9% Ivpb Bag (10/26/21 14:00) Restraints: Behavioral/Violent Q15M (04/23/22 10:02) Behavioral Restraints Q15 M Ch Q15M (04/23/22 10:02) Behavioral Restraint Q2hr Chec Q2HR (04/23/22 10:02) Renewal Ordered Needed (Q3h Ad Q3H (04/23/22 10:02) Restraints: Behavioral/Violent Q15M (04/23/22 10:07) Behavioral Restraints Q15 M Ch Q15M (04/23/22 10:07) Behavioral Restraint Q2hr Chec Q2HR (04/23/22 10:07) Renewal Ordered Needed (Q3h Ad Q3H (04/23/22 10:07) Restraints: Behavioral/Violent Q15M (04/23/22 10:11) Behavioral Restraints Q15 M Ch Q15M (04/23/22 10:11) Behavioral Restraint Q2hr Chec Q2HR (04/23/22 10:11) Renewal Ordered Needed (Q3h Ad Q3H (04/23/22 10:11) Restraints: Behavioral/Violent (04/23/22 10:25) Behavioral Restraints Q15 M Ch Q15M (04/23/22 10:25) Behavioral Restraint Q2hr Chec Q2HR (04/23/22 10:25) Renewal Ordered Needed (Q3h Ad Q3H (04/23/22 10:25) Mri Brain & Orbits W/Wo Con (04/30/22 13:50) Us-Nochg Guide Para/Thor (07/26/22 12:37) Ct Angio Chest W(R/O Tad) (09/11/22 11:34) Ct Angio Chest/Abd W(R/O Ad) (09/11/22 11:34) Patient Visit (10/22/22 ) Exercise Therap, Ea 15 Min (10/22/22 ) Euflexxa 20mg/2ml Syr (01/03/23 12:30) Departure Impression Primary Impression: The administrative codes within the IMO content you are access... Additional Impressions: Anxiety Gall bladder inflammation Disposition: 01 HOME, SELF-CARE Condition: Improved Departure-Patient Inst. Patient Instructions: DR. GLEZ-T&A DIET, DR. GLEZ-TONSILS, DR. GLEZ- TYMPANOSTOMY TUBES, Gallstones (DC) Scripts Ibuprofen (Ibuprofen) 600 Mg Tablet 600 MG PO Q6H for PAIN, #60 TAB 0 Refills Prov: ALETHA PA MD 01/22/23 Amoxicillin (Amoxicillin) 250 Mg/5 Ml Susp 1 TSP PO TID for 10 Days, #120 ML 0 Refills Prov: ANNIE VALENCIA DDS 05/10/22 Ibuprofen (Ibuprofen) 600 Mg Tablet 600 MG PO Q6H for PAIN, #1 TAB 0 Refills Prov: ALETHA PA MD 12/14/21 Acetaminophen (Tylenol Arthritis) 650 Mg Tablet.er 650 MG PO HS, #10 TAB Prov: ALETHA PA MD 07/18/21 ALETHA PA MD Mar 19, 2023 15:02
--- NOTE | 2023-03-28 09:14 | Dentistry Operative Report ---
Operative Record Patient: David Harding : 70 Surgery Date: 03/28/23 Surgeon: Dr. Hunter Velázquez, VANIA Dental Tactical Debriefer Officer: Colten Gay Anesthesia: ANIBAL No drains or sponges were left in place. Sponge count (including one oropharyngeal throat pack) verified at end of case. Estimated blood loss: 5 cc. No specimens submitted for examination. Complications: None. Pre-Operative Diagnosis: Multiple dental caries and acute situational anxiety in the dental clinic Post-Operative Diagnosis: Multiple dental caries and acute situational anxiety in the dental clinic Start time: End Time: S: This is a ___ -year-old child with extensive dental restorative needs and acute situational anxiety in the dental clinic environment; therefore, full mouth dental rehabilitation under general anesthesia was indicated. O: Radiographs: 2 bitewings, upper and lower occlusals, and 4 periapicals were exposed and interpreted. Radiographic Findings: N/A Clinical Findings: REMOVAL A: Multiple dental caries and acute situational anxiety in the dental clinic environment. P: Operation Performed: Full mouth dental rehabilitation under general anesthesia. The patient was premedicated with oral Versed, brought into the operating room, and placed on the operating table in supine position. Following mask induction with sevoflurane, nitrous oxide, and oxygen, an intravenous line was established in the dorsum of the hand, and a naso- tracheal intubation was successfully completed. The patient was positioned and draped in the standard and customary fashion for dental surgery; shielded with a lead apron; and the above listed radiographs were taken. An oropharyngeal throat pack was placed. Comprehensive oral evaluation and full mouth prophylaxis was completed. The following treatments were then completed with a mouth prop and rubber dam isolation by quadrant where appropriate: #____ Sealant: Etched tooth for 20 sec, haji, Clinpro sealant placed and light cured for 20 seconds. #____-Resin Composite Yazidism: Cavity Prep, caries excavated, etched for 20 seconds with 35% phosphoric acid; haji (y/n) restored with trimmed and adjusted occlusion. Sealed margins of hindu with clinpro sealant. #____ - Anterior Composite Strip [place]/Zirconia [place]: caries removed; reduced and shaped tooth; cemented with Fuji II cement; Sizes: #____- SSC: [place] prep; caries removed; reduced and shaped tooth; cemented with Rely-X. SSC sizes: # - Pulpotomy: [place] prep; caries removed; accessed pulpal chamber; formocresol soaked cotton pellet placed for 5 mins, tempit placed on hemostatic pulp stumps to occlude pulp chamber, tooth restored with SSC. # - Pulpectomy: [place] prep, caries removed; accessed pulpal chamber; filed to apex with hand files, copious irrigation with sodium hypochlorite, dried with paper points, filled canals with Vitapex, occluded chamber with Tempit. # - LSTR: [place] prep, caries removed, accessed pulpal chamber, placed Triple Antibiotic Paste on hemostatic/necrotic pulp stumps, Fuji II placed to occlude chamber, restored with SSC. # - Extraction: Soft tissue infiltrated with ___ cc 2% Lidocaine with 1:100,000 epinephrine; relieved cuff and papillae; elevated with 301; delivered with 150s / 151s forceps; copious irrigation with sterile saline, hemostasis achieved. #____ - Space Maintainer: Chairside Denovo band and loop/distal shoe space maintainer fit to proper contours and correct adaptation; cemented with Rely-X cement. Band Size: Occlusion was verified. The oral cavity was then rinsed, evacuated, and examined before the oropharyngeal throat pack was removed. Fluoride varnish was applied. Sponge count was verified. The patient was extubated in the operating room; transported to PACU with protective reflexes intact; and discharged in good condition. VANIA Ansari JOHN E MD Mar 28, 2023 09:14
--- NOTE | 2023-03-28 09:33 | Discharge Summary ---
Discharge Inst-[facility] Reconcile Patient Problems Problems Reviewed?: Yes Depart Medications New, Converted or Re-Newed RX: Transmitted to Pharmacy Follow Up/Instructions Goal/Follow Up: OLGA LIDIA; ALETHA PA MD Mar 28, 2023 09:33
--- NOTE | 2023-03-28 10:17 | Procedure/Intervention Note ---
Procedures/Interventions Lumen: single (TESTING) Central Line Procedure: betadine prep, sterile drapes applied, sterile dressing applied Position: internal jugular (R), internal jugular (L) Anesthesia: local ALETHA PA MD Mar 28, 2023 10:17
--- NOTE | 2023-03-28 10:24 | History & Physical ---
HPI History of Present Illness: 52 year old female presents to clinic today fro complaints of Attending Physician PCP Admitting Physician: Attending Physician: Consult Date of Admission Home Medications Home Medications Reviewed patient Home Medication Reconciliation performed by pharmacy medication reconciliations aviation safety technician and/or nursing. Patients Allergies have been reviewed. Allergies Coded Allergies: No Known Drug Allergies (Unverified , 05/23/21) FWT-Rvqufs-Jqcpla Hx Patient Social History Marrital Status: Employed/Student: employed Smoking Status: Current Everyday Smoker Tobacco type used: Cigars Past Medical History TEST Physical Exam-([facility]) Physical Exam Vital Signs Capillary Refill : Assessment/Plan Assessment/Plan (1) Fall Status: Acute Qualifiers: Qualified Codes: W19.XXXA - Unspecified fall, initial encounter (2) Anemia Status: Chronic Qualifiers: Qualified Codes: D50.8 - Other iron deficiency anemias (3) Hip fracture, left Status: Resolved Qualifiers: (4) Wound dehiscence (5) Wound abscess (6) Gall bladder inflammation Status: Acute (7) CHF (congestive heart failure) (8) CHF (congestive heart failure) Status: Chronic Qualifiers: Qualified Codes: I50.22 - Chronic systolic (congestive) heart failure (9) Hypertension LIANET SHERIFF MD Mar 28, 2023 10:24
--- NOTE | 2023-03-28 10:24 | History & Physical ---
HPI History of Present Illness: 52 year old female presents to clinic today fro complaints of Attending Physician PCP Admitting Physician: Attending Physician: Consult Date of Admission Home Medications Home Medications Reviewed patient Home Medication Reconciliation performed by pharmacy medication reconciliations biometrics technician and/or nursing. Patients Allergies have been reviewed. Allergies Coded Allergies: No Known Drug Allergies (Unverified , 05/23/21) PGG-Afsoea-Jlyzeh Hx Patient Social History Marrital Status: Employed/Student: employed Smoking Status: Former Smoker Past Medical History TEST Review of Systems ([facility]) Constitutional: no symptoms reported, see HPI, chills; No diaphoresis, No dizziness, No fever, No malaise, No weakness, No weight gain, No weight loss, No other Respiratory: no symptoms reported, see HPI, cough, dyspnea on exertion, hemoptysis, orthopnea; No phlegm; short of breath, stridor; No wheezing; other Physical Exam-([facility]) Physical Exam Vital Signs Capillary Refill : HEENT: PERRL/EOMI, normal ENT inspection, TMs normal, pharynx normal; No scl eral icterus (R), No scleral icterus (L), No pale conjunctivae (R), No pale conjunctivae (L), No photophobia, No TM abnormal (R), No TM abnormal (L), No pharyngeal erythema, No tonsillar exudate, No other Neck: non-tender, full range of motion, supple, normal inspection; No limited range of motion Assessment/Plan Assessment/Plan Admission Status: Inpatient Order (span 2 midnights) (1) Anemia Status: Acute Assessment & Plan: TEST Qualifiers: Qualified Codes: D52.0 - Dietary folate deficiency anemia (2) Fall Status: Acute Qualifiers: Qualified Codes: W19.XXXA - Unspecified fall, initial encounter (3) Hip fracture, left Status: Acute Assessment & Plan: TO OR ON FRIDAY Qualifiers: Qualified Codes: S72.002A - Fracture of unspecified part of neck of left femur, initial encounter for closed fracture (4) Wound dehiscence (5) Wound abscess (6) Gall bladder inflammation Status: Acute (7) CHF (congestive heart failure) (8) CHF (congestive heart failure) Status: Chronic Qualifiers: Qualified Codes: I50.22 - Chronic systolic (congestive) heart failure (9) Hypertension (10) Influenza Status: Acute (11) Anxiety Status: Acute Assessment & Plan: ORDERED MEDICATION Clinical Quality Measures Sepsis: Within 3hrs of presentation: Admin fluids, Admin 30ml/kg IBW due to BMI>30, Admin ABX, Blood cultures prior to ABX's, D/C Instructions given to patient, Focus exam, Lactate level, Vasopressin therapy, Other (INSTRUCT FOR DC) ALETHA PA MD Mar 28, 2023 10:23
--- NOTE | 2023-05-27 12:28 | TEST-DO NOT USE-TESTING ONLY ---
TEST-IT ONLY TESTING Admission Diagnosis: this is a test to see if this flows to FA changed the report type. ALETHA PA MD May 27, 2023 12:28
--- NOTE | 2023-06-18 09:03 | ED Lower Extremity ---
General Chief Complaint: Suicidal Ideation Risk Stated Complaint: TESTING Source: patient Exam Limitations: no limitations History of Present Illness Date Seen by Provider: Jun 18, 2023 Time Seen by Provider: 09:01 Onset: just prior to arrival Allergies and Home Medications Allergies Coded Allergies: No Known Drug Allergies (Unverified , 05/23/21) Patient Home Medication List Home Medication List Reviewed: Yes Acetaminophen (Tylenol Arthritis) 650 Mg Tablet.er, 650 MG PO HS Prescribed by: ALETHA PA on 12/05/21 1043 Acetaminophen (Tylenol Extra Strength) 500 Mg Tablet, 500 MG PO Q4H Prescribed by: ALETHA PA on 03/28/23 0930 Amoxicillin (Amoxicillin) 250 Mg/5 Ml Susp, 1 TSP PO TID Prescribed by: Annie Valencia on 05/10/22 0952 Ibuprofen (Ibuprofen) 600 Mg Tablet, 600 MG PO Q6H Prescribed by: ALETHA PA on 12/14/21 2157 Ibuprofen (Ibuprofen) 600 Mg Tablet, 600 MG PO Q6H Prescribed by: ALETHA PA on 01/22/23 1007 Last Action: New Order Review of Systems Constitutional: see HPI Past Cptzvxv-Yoklvu-Coppyl Hx Patient Social History Tobacco Use?: Yes Smoking Status: Former Smoker Smokeless Tobacco Frequency: Current Everyday User, Heavy User, User Current Status Unk Use of E-Cig and/or Vaping Ramses: User Current Status Unk (TESTING) Alcohol type: Beer (TEST) Physical Exam Vital Signs Capillary Refill : Height, Weight, BMI Height: '" Weight: lbs. oz. kg; BMI Method: General Appearance: WD/WN, no apparent distress Procedures/Interventions Lumen: single (TESTING) Central Line Procedure: betadine prep, sterile drapes applied, sterile dressing applied Position: internal jugular (R), internal jugular (L) Anesthesia: local Progress/Results/Core Measures Results/Orders My Orders Orders - ALETHA PA MD, RESIDENT Insert Feeding Tube (07/11/21 10:16) Feeding Tube Discontinue (07/11/21 10:16) Covid-19 Vacc, Mrna(Pfizer)/Pf (Pfizer C (07/17/21 13:00) Ed Admission (Communication) (07/30/21 15:31) Attending Discharge Inpt/Inobs (10/24/21 10:52) Isolation Central Supply Req (10/25/21 07:58) Isolation Central Supply Req (10/25/21 08:19) Isolation Central Supply Req (10/25/21 08:28) Isolation Central Supply Req (10/25/21 10:34) Isolation Central Supply Req (10/25/21 11:44) Iohexol Injection (Omnipaque 350 Mg/Ml 1 (10/26/21 14:00) Received Contrast (Hold Metformin- Contr (10/26/21 14:00) Sodium Chloride Flush (Catheter Flush Sy (10/26/21 14:00) Ns (Ivpb) (Sodium Chloride 0.9% Ivpb Bag (10/26/21 14:00) Restraints: Behavioral/Violent Q15M (04/23/22 10:02) Behavioral Restraints Q15 M Ch Q15M (04/23/22 10:02) Behavioral Restraint Q2hr Chec Q2HR (04/23/22 10:02) Renewal Ordered Needed (Q3h Ad Q3H (04/23/22 10:02) Restraints: Behavioral/Violent Q15M (04/23/22 10:07) Behavioral Restraints Q15 M Ch Q15M (04/23/22 10:07) Behavioral Restraint Q2hr Chec Q2HR (04/23/22 10:07) Renewal Ordered Needed (Q3h Ad Q3H (04/23/22 10:07) Restraints: Behavioral/Violent Q15M (04/23/22 10:11) Behavioral Restraints Q15 M Ch Q15M (04/23/22 10:11) Behavioral Restraint Q2hr Chec Q2HR (04/23/22 10:11) Renewal Ordered Needed (Q3h Ad Q3H (04/23/22 10:11) Restraints: Behavioral/Violent (04/23/22 10:25) Behavioral Restraints Q15 M Ch Q15M (04/23/22 10:25) Behavioral Restraint Q2hr Chec Q2HR (04/23/22 10:25) Renewal Ordered Needed (Q3h Ad Q3H (04/23/22 10:25) Mri Brain & Orbits W/Wo Con (04/30/22 13:50) Us-Nochg Guide Para/Thor (07/26/22 12:37) Ct Angio Chest W(R/O Tad) (09/11/22 11:34) Ct Angio Chest/Abd W(R/O Ad) (09/11/22 11:34) Patient Visit (10/22/22 ) Exercise Therap, Ea 15 Min (10/22/22 ) Euflexxa 20mg/2ml Syr (01/03/23 12:30) 3 Glass Test (03/19/23 15:35) 3 Glass Test (03/19/23 15:40) Iv Discontinue (Conditional)(O (03/28/23 09:17) Transfer To Room When Stable (03/28/23 09:17) Vital Signs: Special (Order) (03/28/23 09:17) Activity As Ordered (03/28/23 09:17) Surgical Sdc D/C Order (03/28/23 09:17) Attending Dischage Sdc/Clinic (03/28/23 09:27) Cbc No Diff (04/15/23 19:52) Ns Iv 1000 Ml (Ns Iv 1000 Ml) (04/15/23 20:30) Acetaminophen Tablet/Caplet (Tylenol T (04/15/23 20:30) Urine Culture (07/01/23 09:50) Ua Culture If Indicated (08/04/23 08:58) Urine Culture (08/04/23 08:58) Urinalysis (08/04/23 09:47) Urine Culture (08/04/23 09:47) Blood Culture (08/04/23 11:23) Departure Impression Primary Impression: High ankle sprain of left lower extremity Disposition: 01 HOME, SELF-CARE Condition: Improved Departure-Patient Inst. Patient Instructions: Ankle Sprain ED Scripts Acetaminophen (Tylenol Extra Strength) 500 Mg Tablet 500 MG PO Q4H, #22 TAB Prov: ALETHA PA MD, RESIDENT 03/28/23 Ibuprofen (Ibuprofen) 600 Mg Tablet 600 MG PO Q6H for PAIN, #60 TAB 0 Refills Prov: ALETHA PA MD, RESIDENT 01/22/23 Amoxicillin (Amoxicillin) 250 Mg/5 Ml Susp 1 TSP PO TID for 10 Days, #120 ML 0 Refills Prov: ANNIE VALENCIA DDS 05/10/22 Ibuprofen (Ibuprofen) 600 Mg Tablet 600 MG PO Q6H for PAIN, #1 TAB 0 Refills Prov: ALETHA PA MD, RESIDENT 12/14/21 Acetaminophen (Tylenol Arthritis) 650 Mg Tablet.er 650 MG PO HS, #10 TAB Prov: ALETHA PA MD, RESIDENT 07/18/21 ALETHA PA MD, RESIDENT Jun 18, 2023 09:03
[~2023-07-04 08:18] MED LIST: ACET-2267 PO; ACET-2650 PO; ACETAMINOPHEN 325 MG TABLET PO ONE; ACETAMINOPHEN 325 MG TABLET PO PRN; ACETAMINOPHEN 325 MG/10.15 ML ORAL SOLN UDC PO SCH; ACETAMINOPHEN 500 MG TABLET PO ONE; ACETAMINOPHEN 500 MG TABLET PO SCH; ACHD5005 PO; AMOX250S5 PO; AMOXICILLIN 250 MG CAPSULE PO STA; AMOXICILLIN 250 MG/5 ML 100 ML BTL PO SCH; CATHETER FLUSH 10 ML SYR IV PRN; CATHETER FLUSH 10 ML SYR IV SCH; COVID-19 VACC, MRNA(PFIZER)/PF 30 MCG/0.3 ML VIAL IM ONE; DOCUSATE SODIUM 100 MG CAPSULE PO SCH; HOLD METFORMIN - RECEIVED CONTRAST 20 ML VIAL IV SCH; IBUP-1773 PO; IBUPROFEN 600 MG TABLET PO SCH; IBUPROFEN 800 MG TABLET PO SCH; IBUPROFEN ORAL SUSPENSION 100MG/5ML UDC PO ONE; IOHEXOL 350 MG/ML 100 ML (OMNIPAQUE 350) VIAL IV ONE; KETOROLAC INJ 15 MG/ML VIAL IV SCH; KETOROLAC INJ 30 MG/ML VIAL IV SCH; MEASLES, MUMPS, RUBELLA VACCINE (MMR) SC SCH; NALOXONE 0.4 MG/ML 1 ML VIAL IV PRN; NS 100 ML (IVPB) BAG IV ONE; NS IV 1000 ML 1,000 ML IV SCH; ONDANSETRON INJECTION 4 MG/2 ML (SDV) IVP PRN; OXYC1TAB11 PO; SOD POLYSTERENE 15 GM/60 ML (KAYEXALATE) UNIT DOSE PO SCH; SODIUM BICARBONATE 8.4% VIAL 150 MEQ in WATER FOR INJECTION, STERILE 1,000 ML IV SCH; TORSEMIDE 20 MG (DEMADEX) TAB PO SCH; Tetanus/Diphtheria/Pertussis (Acell) ADULT Vaccine 0.5 ML IM SCH; estradioL 1 MG TABLET PO SCH; morphine INJ 4 MG/ML 1 ML (VIAL/SYRINGE) IVP PRN; oxyCODONE IMMEDIATE RELEASE 5 MG TABLET PO PRN
--- NOTE | 2023-07-14 09:34 | History & Physical-Hospitalist ---
History of Present Illness Date Seen 07/14/23 Attending Physician PCP Admitting Physician: Attending Physician: Hoang Referring Physician Date of Admission Home Medications & Allergies Home Medications Reviewed patient Home Medication Reconciliation performed by pharmacy medication reconciliations laundry technician and/or nursing. Patients Allergies have been reviewed. Allergies Allergies Coded Allergies No Known Drug Allergies (Unverified05/23/21) Past Vpjwjwv-Xxhmjt-Qaerfj Hx Patient Social History Marrital Status: Employed/Student: employed Tobacco Use?: Yes Smoking Status: Former Smoker Smokeless Tobacco Frequency: Current Everyday User, Heavy User, User Current Status Unk Use of E-Cig and/or Vaping Ramses: User Current Status Unk (TESTING) Alcohol type: Beer (TEST) Past Medical History TEST Physical Exam Physical Exam Vital Signs Capillary Refill : Height, Weight, BMI Height: '" Weight: lbs. oz. kg; BMI Method: Results Results/Procedures Labs Patient resulted labs reviewed. Imaging: Reviewed Imaging Films, Reviewed Imaging Report Diagnosis/Problems Diagnosis/Problems (1) CHF (congestive heart failure) Qualifiers: Heart failure type: diastolic (2) Wound dehiscence KAI LOVE Jul 14, 2023 09:34
--- NOTE | 2023-07-28 10:37 | Progress Note ---
Progress Note Assessment/Plan Assessment/Plan SEE PROBLEM LIST+ \Tracy EMANUEL MD Jul 28, 2023 10:37
--- NOTE | 2023-07-28 10:57 | Discharge Inst-Urology ---
Discharge Inst-Urology Patient Instructions/Follow Up Plan/Assessment/Instructions Please make appointment to been seen in office in 2 weeks. Increase oral fluids for 48 hours and then as needed. Diet and Activity as tolerated. If questions or concerns contact your physician Or seek help at emergency department. Tracy RIVERA MD Jul 28, 2023 10:57
--- NOTE | 2023-08-06 13:14 | Discharge Summary ---
Discharge Summary Hospital Course Problems/Dx: (1) CHF (congestive heart failure) Qualifiers: (2) Wound dehiscence Hospital Course Date of Admission: Admission Diagnosis : this is a test to see if this flows to FAchanged the report type. Family Physician/Provider: Aletha Herron MD,Resident Date of Discharge: 08/06/23 Discharge Diagnosis: [ ] Hospital Course: [ ] Labs and Pending Lab Test: Home Meds Active Tylenol Extra Strength (Acetaminophen) 500 Mg Tablet 500 Mg PO Q4H Ibuprofen 600 Mg Tablet 600 Mg PO Q6H Amoxicillin 250 Mg/5 Ml Susp 1 Tsp PO TID 10 Days Ibuprofen 600 Mg Tablet 600 Mg PO Q6H Tylenol Arthritis (Acetaminophen) 650 Mg Tablet.er 650 Mg PO HS Discharge Physical Examination Allergies: Coded Allergies: No Known Drug Allergies (Unverified , 05/23/21) Discharge Summary Date of Admission Date of Discharge Discharge Diagnosis (1) CHF (congestive heart failure) Qualifiers: (2) Wound dehiscence ALETHA HERRON MD, RESIDENT Aug 06, 2023 13:13
--- NOTE | 2023-08-06 15:28 | Progress Note ---
Progress Note Assessment/Plan Time Seen by Provider: 15:29 Events since last exam TESTING Assessment/Plan SEE PROBLEM LIST+ \' ALEXX CAMARILLO MD Aug 06, 2023 15:27
--- NOTE | 2023-08-07 10:11 | Progress Note ---
Progress Note TESTING ALETHA PA MD, RESIDENT Aug 07, 2023 10:11
--- NOTE | 2023-08-07 22:43 | Cardiology Progress Note ---
Objective-Cardiology Exam General: Alert, Oriented X3, No Acute Distress HEENT: Atraumatic, Mucous Memb Moist/[place] Neck: Supple Heart: Regular Rate Abdomen: Normal Bowel Sounds, Soft, No Tenderness, No Hepatosplenomegaly, No Masses A/P-Cardiology Admission Diagnosis (1) Hip fracture, left Status: Acute Assessment & Plan: TO OR IN AM Qualifiers: Qualified Codes: S72.002A - Fracture of unspecified part of neck of left femur, initial encounter for closed fracture (2) Fall Status: Acute Assessment & Plan: BED ALARM ORDERED FOR NURSING Qualifiers: Qualified Codes: W19.XXXA - Unspecified fall, initial encounter (3) S/P appy Status: Acute Assessment & Plan: TESTING (4) Gall bladder inflammation Status: Acute (5) Anemia Status: Acute Qualifiers: Qualified Codes: D52.0 - Dietary folate deficiency anemia Diagnosis/Problems Diagnosis/Problems (1) Hip fracture, left Status: Acute Assessment & Plan: TO OR IN AM Qualifiers: Qualified Codes: S72.002A - Fracture of unspecified part of neck of left femur, initial encounter for closed fracture (2) Fall Status: Acute Assessment & Plan: BED ALARM ORDERED FOR NURSING Qualifiers: Qualified Codes: W19.XXXA - Unspecified fall, initial encounter (3) S/P appy Status: Acute Assessment & Plan: TESTING (4) Gall bladder inflammation Status: Acute (5) Anemia Status: Acute Qualifiers: Qualified Codes: D52.0 - Dietary folate deficiency anemia ALETHA PA MD, RESIDENT Aug 07, 2023 22:43
--- NOTE | 2023-08-08 08:22 | Discharge Summary ---
Discharge Summary Hospital Course Problems/Dx: (1) CHF (congestive heart failure) Qualifiers: (2) Wound dehiscence Hospital Course Date of Admission: Admission Diagnosis : this is a test to see if this flows to FAchanged the report type. Family Physician/Provider: Aletha Herron MD,Resident Date of Discharge: 08/08/23 Discharge Diagnosis: [ ] Hospital Course: [ ] Labs and Pending Lab Test: Home Meds Active Tylenol Extra Strength (Acetaminophen) 500 Mg Tablet 500 Mg PO Q4H Ibuprofen 600 Mg Tablet 600 Mg PO Q6H Amoxicillin 250 Mg/5 Ml Susp 1 Tsp PO TID 10 Days Ibuprofen 600 Mg Tablet 600 Mg PO Q6H Tylenol Arthritis (Acetaminophen) 650 Mg Tablet.er 650 Mg PO HS Assessment/Pt Instructions I observed, participated in, and was physically present during the pediatric dental procedure, with the pediatric dental resident, [ ]. Prior to the appointment for this pediatric dental procedure, I discussed the treatment plan and the patient's medical and dental history with the pediatric dental resident as outlined in the electronic dental record. The treatment rendered during the pediatric dental procedure followed the appropriate standard of care as set forth by the [place] [employer], the [place] [employer], and associated state and/or federal rules. [ ] Discharge Instructions Discharge Diet: No Restrictions Discharge Physical Examination Allergies: Coded Allergies: No Known Drug Allergies (Unverified , 05/23/21) Discharge Summary Date of Admission Date of Discharge Discharge Diagnosis (1) CHF (congestive heart failure) Qualifiers: (2) Wound dehiscence ALETHA HERRON MD, RESIDENT Aug 08, 2023 08:22
--- NOTE | 2023-08-08 14:42 | Discharge Summary ---
Discharge Summary Hospital Course Was the Problem List Reviewed?: Yes Problems/Dx: (1) CHF (congestive heart failure) Qualifiers: (2) Wound dehiscence Hospital Course Date of Admission: Admission Diagnosis : this is a test to see if this flows to FAchanged the re port type. Family Physician/Provider: Aletha Herron MD,Resident Date of Discharge: 08/08/23 Discharge Diagnosis: [ ] Hospital Course: [ ] Labs and Pending Lab Test: Home Meds Active Tylenol Extra Strength (Acetaminophen) 500 Mg Tablet 500 Mg PO Q4H Ibuprofen 600 Mg Tablet 600 Mg PO Q6H Amoxicillin 250 Mg/5 Ml Susp 1 Tsp PO TID 10 Days Ibuprofen 600 Mg Tablet 600 Mg PO Q6H Tylenol Arthritis (Acetaminophen) 650 Mg Tablet.er 650 Mg PO HS Assessment/Pt Instructions I observed, participated in, and was physically present during the pediatric dental procedure, with the pediatric dental resident, [ ]. Prior to the appointment for this pediatric dental procedure, I discussed the treatment plan and the patient's medical and dental history with the pediatric dental resident as outlined in the electronic dental record. The treatment rendered during the pediatric dental procedure followed the appropriate standard of care as set forth by the [place] [employer], the [place] [employer], and associated state and/or federal rules. [ ] Discharge Instructions Discharge Diet: No Restrictions Discharge Physical Examination Allergies: Coded Allergies: No Known Drug Allergies (Unverified , 05/23/21) Discharge Summary Date of Admission Date of Discharge Discharge Diagnosis (1) CHF (congestive heart failure) Qualifiers: (2) Wound dehiscence ALETHA HERRON MD, RESIDENT Aug 08, 2023 14:42
--- NOTE | 2023-08-11 17:01 | ED Abdominal Pain ---
General Chief Complaint: Suicidal Ideation Risk Stated Complaint: TESTING PYXIS ACCOUNTS History of Present Illness Date Seen by Provider: Aug 11, 2023 Time Seen by Provider: 17:00 Allergies and Home Medications Allergies Coded Allergies: No Known Drug Allergies (Unverified , 05/23/21) Patient Home Medication List Home Medication List Reviewed: Yes Acetaminophen (Tylenol Arthritis) 650 Mg Tablet.er, 650 MG PO HS Prescribed by: ALETHA PA on 12/05/21 1043 Acetaminophen (Tylenol Extra Strength) 500 Mg Tablet, 500 MG PO Q4H Prescribed by: ALETHA PA on 03/28/23 0930 Amoxicillin (Amoxicillin) 250 Mg/5 Ml Susp, 1 TSP PO TID Prescribed by: Annie Valencia on 05/10/22 0952 Ibuprofen (Ibuprofen) 600 Mg Tablet, 600 MG PO Q6H Prescribed by: ALETHA PA on 12/14/21 2157 Ibuprofen (Ibuprofen) 600 Mg Tablet, 600 MG PO Q6H Prescribed by: ALETHA PA on 01/22/23 1007 Last Action: New Order Review of Systems Review of Systems Constitutional: see HPI Respiratory: No Symptoms Reported, See HPI Cardiovascular: No Symptoms Reported, See HPI Gastrointestinal: No Symptoms Reported, See HPI Genitourinary: No Symptoms Reported, See HPI Skin: No rash Psychiatric/Neurological: See HPI; Denies Anxiety, Denies Depressed, Denies Pre-Existing Deficit, Denies Other Endocrine: No Symptoms Reported, See HPI Hematologic/Lymphatic: No Symptoms Reported, See HPI Past Hctfmpw-Kphdlj-Pgmchi Hx Patient Social History Tobacco Use?: Yes Smoking Status: Former Smoker Smokeless Tobacco Frequency: Current Everyday User, Heavy User, User Current Status Unk Use of E-Cig and/or Vaping Ramses: User Current Status Unk (TESTING) Alcohol type: Beer (TEST) Physical Exam Vital Signs Capillary Refill : Height/Weight/BMI Height: '" Weight: lbs. oz. kg; BMI Method: General Appearance: WD/WN, no apparent distress HEENT: PERRL/EOMI, normal ENT inspection, TMs normal, pharynx normal Neck: non-tender, full range of motion, supple, normal inspection Respiratory: chest non-tender, lungs clear, normal breath sounds, no respiratory distress, no accessory muscle use Cardiovascular: normal peripheral pulses, regular rate, rhythm, no edema, no gallop, no JVD, no murmur Peripheral Pulses: 2+ Carotid (R), 2+ Carotid (L), 2+ Femoral (R), 2+ Femoral (L), 2+ Dorsalis Pedis (R), 2+ Left Dors-Pedis (L), 2+ Radial Pulses (R), 2+ Radial Pulses (L) Gastrointestinal: normal bowel sounds, non tender, soft, no organomegaly, no pulsatile mass Rectal: normal exam Genital/Rectal: normal genital exam Extremities: normal range of motion, non-tender, normal inspection, no pedal edema, no calf tenderness, normal capillary refill, pelvis stable Pelvic: normal external exam, normal adnexa, no cerv. 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, no motor/sensory deficits, alert, normal mood/affect, oriented x 3 Skin: normal color, warm/dry Lymphatic: no adenopathy Procedures/Interventions Lumen: single (TESTING) Central Line Procedure: betadine prep, sterile drapes applied, sterile dressing applied Position: internal jugular (R), internal jugular (L) Anesthesia: local Progress/Results/Core Measures Results/Orders My Orders Orders - ALETHA PA MD, RESIDENT Insert Feeding Tube (07/11/21 10:16) Feeding Tube Discontinue (07/11/21 10:16) Covid-19 Vacc, Mrna(Pfizer)/Pf (Pfizer C (07/17/21 13:00) Ed Admission (Communication) (07/30/21 15:31) Attending Discharge Inpt/Inobs (10/24/21 10:52) Isolation Central Supply Req (10/25/21 07:58) Isolation Central Supply Req (10/25/21 08:19) Isolation Central Supply Req (10/25/21 08:28) Isolation Central Supply Req (10/25/21 10:34) Isolation Central Supply Req (10/25/21 11:44) Iohexol Injection (Omnipaque 350 Mg/Ml 1 (10/26/21 14:00) Received Contrast (Hold Metformin- Contr (10/26/21 14:00) Sodium Chloride Flush (Catheter Flush Sy (10/26/21 14:00) Ns (Ivpb) (Sodium Chloride 0.9% Ivpb Bag (10/26/21 14:00) Restraints: Behavioral/Violent Q15M (04/23/22 10:02) Behavioral Restraints Q15 M Ch Q15M (04/23/22 10:02) Behavioral Restraint Q2hr Chec Q2HR (04/23/22 10:02) Renewal Ordered Needed (Q3h Ad Q3H (04/23/22 10:02) Restraints: Behavioral/Violent Q15M (04/23/22 10:07) Behavioral Restraints Q15 M Ch Q15M (04/23/22 10:07) Behavioral Restraint Q2hr Chec Q2HR (04/23/22 10:07) Renewal Ordered Needed (Q3h Ad Q3H (04/23/22 10:07) Restraints: Behavioral/Violent Q15M (04/23/22 10:11) Behavioral Restraints Q15 M Ch Q15M (04/23/22 10:11) Behavioral Restraint Q2hr Chec Q2HR (04/23/22 10:11) Renewal Ordered Needed (Q3h Ad Q3H (04/23/22 10:11) Restraints: Behavioral/Violent (04/23/22 10:25) Behavioral Restraints Q15 M Ch Q15M (04/23/22 10:25) Behavioral Restraint Q2hr Chec Q2HR (04/23/22 10:25) Renewal Ordered Needed (Q3h Ad Q3H (04/23/22 10:25) Mri Brain & Orbits W/Wo Con (04/30/22 13:50) Us-Nochg Guide Para/Thor (07/26/22 12:37) Ct Angio Chest W(R/O Tad) (09/11/22 11:34) Ct Angio Chest/Abd W(R/O Ad) (09/11/22 11:34) Patient Visit (10/22/22 ) Exercise Therap, Ea 15 Min (10/22/22 ) Euflexxa 20mg/2ml Syr (01/03/23 12:30) 3 Glass Test (03/19/23 15:35) 3 Glass Test (03/19/23 15:40) Iv Discontinue (Conditional)(O (03/28/23 09:17) Transfer To Room When Stable (03/28/23 09:17) Vital Signs: Special (Order) (03/28/23 09:17) Activity As Ordered (03/28/23 09:17) Surgical Sdc D/C Order (03/28/23 09:17) Attending Dischage Sdc/Clinic (03/28/23 09:27) Cbc No Diff (04/15/23 19:52) Ns Iv 1000 Ml (Ns Iv 1000 Ml) (04/15/23 20:30) Acetaminophen Tablet/Caplet (Tylenol T (04/15/23 20:30) Urine Culture (07/01/23 09:50) Ua Culture If Indicated (08/04/23 08:58) Urine Culture (08/04/23 08:58) Urinalysis (08/04/23 09:47) Urine Culture (08/04/23 09:47) Blood Culture (08/04/23 11:23) Departure Impression Primary Impression: High ankle sprain of left lower extremity Additional Impressions: Anxiety Depression S/P appy Drug overdose Disposition: ADMITTED INPATIENT Condition: Improved Departure-Patient Inst. Referrals: ALETHA PA MD, RESIDENT (Family) Primary Care Physician Patient Instructions: Acute Pain, Adult Scripts Acetaminophen (Tylenol Extra Strength) 500 Mg Tablet 500 MG PO Q4H, #22 TAB Prov: ALETHA PA MD, RESIDENT 03/28/23 Ibuprofen (Ibuprofen) 600 Mg Tablet 600 MG PO Q6H for PAIN, #60 TAB 0 Refills Prov: ALETHA PA MD, RESIDENT 01/22/23 Amoxicillin (Amoxicillin) 250 Mg/5 Ml Susp 1 TSP PO TID for 10 Days, #120 ML 0 Refills Prov: ANNIE VALENCIA DDS 05/10/22 Ibuprofen (Ibuprofen) 600 Mg Tablet 600 MG PO Q6H for PAIN, #1 TAB 0 Refills Prov: ALETHA PA MD, RESIDENT 12/14/21 Acetaminophen (Tylenol Arthritis) 650 Mg Tablet.er 650 MG PO HS, #10 TAB Prov: ALETHA PA MD, RESIDENT 07/18/21 ALETHA PA MD, RESIDENT Aug 11, 2023 17:01
--- NOTE | 2023-08-11 17:10 | Cardiology Progress Note ---
Subjective Time Seen by Provider: 15:00 Objective-Cardiology Exam General: Alert, Oriented X3, No Acute Distress HEENT: Atraumatic, Mucous Memb Moist/[place] Neck: Supple Heart: Regular Rate Abdomen: Normal Bowel Sounds, Soft, No Tenderness, No Hepatosplenomegaly, No Masses A/P-Cardiology Admission Diagnosis (1) Hip fracture, left Status: Acute Assessment & Plan: TO OR IN AM Qualifiers: Qualified Codes: S72.002A - Fracture of unspecified part of neck of left femur, initial encounter for closed fracture (2) Fall Status: Acute Assessment & Plan: BED ALARM ORDERED FOR NURSING Qualifiers: Qualified Codes: W19.XXXA - Unspecified fall, initial encounter (3) S/P appy Status: Acute Assessment & Plan: TESTING (4) Gall bladder inflammation Status: Acute (5) Anemia Status: Acute Qualifiers: Qualified Codes: D52.0 - Dietary folate deficiency anemia Diagnosis/Problems Diagnosis/Problems (1) Hip fracture, left Status: Acute Assessment & Plan: TO OR IN AM Qualifiers: Qualified Codes: S72.002A - Fracture of unspecified part of neck of left femur, initial encounter for closed fracture (2) Fall Status: Acute Assessment & Plan: BED ALARM ORDERED FOR NURSING Qualifiers: Qualified Codes: W19.XXXA - Unspecified fall, initial encounter (3) S/P appy Status: Acute Assessment & Plan: TESTING (4) Gall bladder inflammation Status: Acute (5) Anemia Status: Acute Qualifiers: Qualified Codes: D52.0 - Dietary folate deficiency anemia Supervisory-Addendum Brief Verification & Attestation Participated in pt care: history Personally performed: exam Care discussed with: Medical Student Procedures: n/a Procedure type: I&D sdfsdfds ALETHA PA MD, RESIDENT Aug 11, 2023 17:10
--- NOTE | 2023-08-11 17:11 | Progress Note ---
Standard Progress Note Progress Notes/Assess & Plan Time Seen by a Provider: 12:00 Diagnosis/Problems Diagnosis/Problems (1) Hip fracture, left Status: Acute Assessment & Plan: TO OR IN AM Qualifiers: Qualified Codes: S72.002A - Fracture of unspecified part of neck of left femur, initial encounter for closed fracture (2) Fall Status: Acute Assessment & Plan: BED ALARM ORDERED FOR NURSING Qualifiers: Qualified Codes: W19.XXXA - Unspecified fall, initial encounter (3) S/P appy Status: Acute Assessment & Plan: TESTING (4) Gall bladder inflammation Status: Acute (5) Anemia Status: Acute Qualifiers: Qualified Codes: D52.0 - Dietary folate deficiency anemia ALETHA PA MD, RESIDENT Aug 11, 2023 17:11
--- NOTE | 2023-08-11 19:15 | Discharge Summary ---
Discharge Summary Hospital Course Was the Problem List Reviewed?: Yes Problems/Dx: (1) Hip fracture, left Status: Acute Qualifiers: Qualified Codes: S72.002A - Fracture of unspecified part of neck of left femur, initial encounter for closed fracture (2) Fall Status: Acute Qualifiers: Qualified Codes: W19.XXXA - Unspecified fall, initial encounter (3) S/P appy Status: Acute (4) Gall bladder inflammation (5) Anemia Status: Acute Qualifiers: Qualified Codes: D52.0 - Dietary folate deficiency anemia Hospital Course Date of Admission: Admission Diagnosis : this is a test to see if this flows to FAchanged the report type. Family Physician/Provider: Aletha Herron MD,Resident Date of Discharge: 08/11/23 Discharge Diagnosis: [ ] Hospital Course: [ ] Labs and Pending Lab Test: Home Meds Active Tylenol Extra Strength (Acetaminophen) 500 Mg Tablet 500 Mg PO Q4H Ibuprofen 600 Mg Tablet 600 Mg PO Q6H Amoxicillin 250 Mg/5 Ml Susp 1 Tsp PO TID 10 Days Ibuprofen 600 Mg Tablet 600 Mg PO Q6H Tylenol Arthritis (Acetaminophen) 650 Mg Tablet.er 650 Mg PO HS Assessment/Pt Instructions I observed, participated in, and was physically present during the pediatric dental procedure, with the pediatric dental resident, [ ]. Prior to the appo intment for this pediatric dental procedure, I discussed the treatment plan and the patient's medical and dental history with the pediatric dental resident as outlined in the electronic dental record. The treatment rendered during the pediatric dental procedure followed the appropriate standard of care as set forth by the [place] [employer], the [place] [employer], and associated state and/or federal rules. [ ] Discharge Instructions Discharge Diet: No Restrictions, Regular Diet Discharge Physical Examination HEENT: TM Abnormal (L) Allergies: Coded Allergies: No Known Drug Allergies (Unverified , 05/23/21) Discharge Summary Date of Admission Date of Discharge Discharge Diagnosis (1) Hip fracture, left Status: Acute Assessment & Plan: TO OR IN AM Qualifiers: Qualified Codes: S72.002A - Fracture of unspecified part of neck of left femur, initial encounter for closed fracture (2) Fall Status: Acute Assessment & Plan: BED ALARM ORDERED FOR NURSING Qualifiers: Qualified Codes: W19.XXXA - Unspecified fall, initial encounter (3) S/P appy Status: Acute Assessment & Plan: TESTING (4) Gall bladder inflammation Status: Acute (5) Anemia Status: Acute Qualifiers: Qualified Codes: D52.0 - Dietary folate deficiency anemia ALETHA HERRON MD, RESIDENT Aug 11, 2023 19:15
--- NOTE | 2023-08-11 20:39 | Discharge Summary ---
Discharge Summary Hospital Course Problems/Dx: (1) Hip fracture, left Status: Acute Qualifiers: Qualified Codes: S72.002A - Fracture of unspecified part of neck of left femur, initial encounter for closed fracture (2) Fall Status: Acute Qualifiers: Qualified Codes: W19.XXXA - Unspecified fall, initial encounter (3) S/P appy Status: Acute (4) Gall bladder inflammation Status: Acute (5) Anemia Status: Acute Qualifiers: Qualified Codes: D52.0 - Dietary folate deficiency anemia Hospital Course Date of Admission: Admission Diagnosis : this is a test to see if this flows to FAchanged the repor t type. Family Physician/Provider: Aletha Herron MD,Resident Date of Discharge: 08/11/23 Discharge Diagnosis: [ ] Hospital Course: [ ] Labs and Pending Lab Test: Home Meds Active Tylenol Extra Strength (Acetaminophen) 500 Mg Tablet 500 Mg PO Q4H Ibuprofen 600 Mg Tablet 600 Mg PO Q6H Amoxicillin 250 Mg/5 Ml Susp 1 Tsp PO TID 10 Days Ibuprofen 600 Mg Tablet 600 Mg PO Q6H Tylenol Arthritis (Acetaminophen) 650 Mg Tablet.er 650 Mg PO HS Assessment/Pt Instructions I observed, participated in, and was physically present during the pediatric dental procedure, with the pediatric dental resident, [ ]. Prior to the appointment for this pediatric dental procedure, I discussed the treatment plan and the patient's medical and dental history with the pediatric dental resident as outlined in the electronic dental record. The treatment rendered during the pediatric dental procedure followed the appropriate standard of care as set forth by the [place] [employer], the [place] [employer], and associated state and/or federal rules. [ ] Discharge Instructions Discharge Diet: No Restrictions, Regular Diet Discharge Physical Examination Allergies: Coded Allergies: No Known Drug Allergies (Unverified , 05/23/21) Discharge Summary Date of Admission Date of Discharge Discharge Diagnosis (1) Hip fracture, left Status: Acute Assessment & Plan: TO OR IN AM Qualifiers: Qualified Codes: S72.002A - Fracture of unspecified part of neck of left femur, initial encounter for closed fracture (2) Fall Status: Acute Assessment & Plan: BED ALARM ORDERED FOR NURSING Qualifiers: Qualified Codes: W19.XXXA - Unspecified fall, initial encounter (3) S/P appy Status: Acute Assessment & Plan: TESTING (4) Gall bladder inflammation Status: Acute (5) Anemia Status: Acute Qualifiers: Qualified Codes: D52.0 - Dietary folate deficiency anemia ALETHA HERRON MD, RESIDENT Aug 11, 2023 20:39
--- NOTE | 2023-08-11 21:48 | Consultation-Cardiology ---
HPI-Cardiology Cardiology Consultation Date of Consultation 08/11/23 Date of Admission Time Seen by Provider: 12:00 Indication: POST DOWNTIME TESTING FOR PDOC TEMPLATE FUNCTIONALITY HPI Testing Home Medications & Allergies Allergies: Coded Allergies: No Known Drug Allergies (Unverified , 05/23/21) ZWL-Ibfoxa-Erlhmy Hx Patient Social History Marital Status: Employed/Student: employed Smoking Status: Former Smoker Review of Systems-General Review of Systems Constitutional: see HPI EENTM: blurred vision; No see HPI, No no symptoms reported, No ear discharge, No hearing loss, No ear pain, No double vision, No eye pain, No tearing, No vision loss, No dental problems, No hoarseness, No mouth pain, No mouth swelling, No epistaxis, No nose congestion, No nose pain, No throat pain, No throat swelling, No other Respiratory: no symptoms reported, see HPI, cough, dyspnea on exertion, hemoptysis, orthopnea; No phlegm; short of breath, stridor; No wheezing; other Cardiovascular: no symptoms reported, see HPI Gastrointestinal: see HPI Genitourinary: No dysuria, No hematuria : Yes Skin: No rash Psychiatric/Neurological: See HPI; Denies Anxiety, Denies Depressed, Denies Pre-Existing Deficit, Denies Other All Other Systems Reviewed Negative Unless Noted: Yes Physical Exam Physical Exam Vital Signs Capillary Refill : Height, Weight, BMI Height: '" Weight: lbs. oz. kg; BMI Method: General Appearance: No Apparent Distress, WD/WN; No Anxious, No Chronically ill, No Cachetic, No Mild Distress, No Moderate Distress, No Obese, No Severe Distress, No Thin, No Other Eyes: Bilateral Eye Normal Inspection, Bilateral Eye PERRL, Bilateral Eye EOMI HEENT: TM Abnormal (L) Neck: Full Range of Motion, Normal Inspection, Non Tender, Supple Respiratory: Chest Non Tender (TESTING), Normal Breath Sounds (TESTING), No Accessory Muscle Use Cardiovascular: Diastolic Murmur, Systolic Murmur, Extra Beats, Friction Rub Reflexes: 3+ Bicep (R), 3+ Bicep (L), 3+ Tricep (R), 3+ Tricep (L), 3+ Knee (R), 3+ Knee (L), 3+ Ankle (R), 3+ Ankle (L) A/P-Cardiology Admission Diagnosis (1) Hip fracture, left Status: Acute Assessment & Plan: TO OR IN AM Qualifiers: Qualified Codes: S72.002A - Fracture of unspecified part of neck of left femur, initial encounter for closed fracture (2) Fall Status: Acute Assessment & Plan: BED ALARM ORDERED FOR NURSING Qualifiers: Qualified Codes: W19.XXXA - Unspecified fall, initial encounter (3) S/P appy Status: Acute Assessment & Plan: TESTING (4) Gall bladder inflammation Status: Acute (5) Anemia Status: Acute Qualifiers: Qualified Codes: D52.0 - Dietary folate deficiency anemia ALETHA PA MD, RESIDENT Aug 11, 2023 21:48
--- NOTE | 2023-08-12 08:24 | Discharge Summary ---
Discharge Summary Hospital Course Was the Problem List Reviewed?: Yes Problems/Dx: (1) Hip fracture, left Status: Acute Qualifiers: Qualified Codes: S72.002A - Fracture of unspecified part of neck of left femur, initial encounter for closed fracture (2) Fall Status: Acute Qualifiers: Qualified Codes: W19.XXXA - Unspecified fall, initial encounter (3) S/P appy Status: Acute (4) Gall bladder inflammation Status: Acute (5) Anemia Status: Acute Qualifiers: Qualified Codes: D52.0 - Dietary folate deficiency anemia Hospital Course Date of Admission: Admission Diagnosis : this is a test to see if this flows to FAchanged the report type. Family Physician/Provider: Aletha Herron MD,Resident Date of Discharge: 08/12/23 Discharge Diagnosis: [ ] Hospital Course: [ ] Labs and Pending Lab Test: Home Meds Active Tylenol Extra Strength (Acetaminophen) 500 Mg Tablet 500 Mg PO Q4H Ibuprofen 600 Mg Tablet 600 Mg PO Q6H Amoxicillin 250 Mg/5 Ml Susp 1 Tsp PO TID 10 Days Ibuprofen 600 Mg Tablet 600 Mg PO Q6H Tylenol Arthritis (Acetaminophen) 650 Mg Tablet.er 650 Mg PO HS Assessment/Pt Instructions test Discharge Instructions Discharge Diet: No Restrictions, Regular Diet Discharge Physical Examination Allergies: Coded Allergies: No Known Drug Allergies (Unverified , 05/23/21) Discharge Summary Date of Admission Date of Discharge Discharge Diagnosis (1) Hip fracture, left Status: Acute Assessment & Plan: TO OR IN AM Qualifiers: Qualified Codes: S72.002A - Fracture of unspecified part of neck of left femur, initial encounter for closed fracture (2) Fall Status: Acute Assessment & Plan: BED ALARM ORDERED FOR NURSING Qualifiers: Qualified Codes: W19.XXXA - Unspecified fall, initial encounter (3) S/P appy Status: Acute Assessment & Plan: TESTING (4) Gall bladder inflammation Status: Acute (5) Anemia Status: Acute Qualifiers: Qualified Codes: D52.0 - Dietary folate deficiency anemia ALETHA HERRON MD, RESIDENT Aug 12, 2023 08:24
--- NOTE | 2023-08-12 13:19 | Cardiac Cath Report ---
Cardiac Cath Report Physician (s)/Busher Helper (s) Physician MUSA MITCHELL MD Pre-Procedure Diagnosis Pre-Procedure Diagnosis: distress Post-Procedure Note Anesthesia Type: Conscious Sedation Estimated blood loss (mL): less than 500 Post-Procedure Diagnosis (1) Hip fracture, left Assessment & Plan: TO OR IN AM Qualifiers: Qualified Codes: S72.002A - Fracture of unspecified part of neck of left femur, initial encounter for closed fracture (2) Fall Assessment & Plan: BED ALARM ORDERED FOR NURSING Qualifiers: Qualified Codes: W19.XXXA - Unspecified fall, initial encounter (3) S/P appy Assessment & Plan: TESTING (4) Gall bladder inflammation (5) Anemia Qualifiers: Qualified Codes: D52.0 - Dietary folate deficiency anemia (6) Acute [place] Qualifiers: Qualified Codes: I21.02 - ST elevation (STEMI) myocardial infarction involving left anterior descending coronary artery (7) Chest pain Qualifiers: MUSA MITCHELL MD Aug 12, 2023 13:19
[2023-08-12] MEDS ORDERED: PATIENT MAY USE OWN MEDS, ALL PO SCH (13:30)
[2023-08-12] MEDS ORDERED: morphine INJ 10 MG/ML 1ML (SYR OR VIAL) IVP PRN (13:30)
[2023-08-12] MEDS ORDERED: ACETAMINOPHEN 325 MG TABLET PO PRN (13:30)
[2023-08-12] MEDS ORDERED: NS IV 1000 ML 1,000 ML IV SCH (13:30)
--- NOTE | 2023-08-13 10:00 | Discharge Summary ---
Discharge Summary Hospital Course Was the Problem List Reviewed?: Yes Problems/Dx: (1) Hip fracture, left Status: Acute Qualifiers: Qualified Codes: S72.002A - Fracture of unspecified part of neck of left femur, initial encounter for closed fracture (2) Fall Status: Acute Qualifiers: Qualified Codes: W19.XXXA - Unspecified fall, initial encounter (3) S/P appy Status: Acute (4) Gall bladder inflammation Status: Acute (5) Anemia Status: Acute Qualifiers: Qualified Codes: D52.0 - Dietary folate deficiency anemia (6) Acute ND Qualifiers: Qualified Codes: I21.02 - ST elevation (STEMI) myocardial infarction involving left anterior descending coronary artery (7) Chest pain Qualifiers: Hospital Course Date of Admission: Admission Diagnosis : this is a test to see if this flows to FAchanged the report type. Family Physician/Provider: Aletha Herron MD,Resident Date of Discharge: 08/13/23 Discharge Diagnosis: [ ] Hospital Course: [ ] Labs and Pending Lab Test: Home Meds Active Tylenol Extra Strength (Acetaminophen) 500 Mg Tablet 500 Mg PO Q4H Ibuprofen 600 Mg Tablet 600 Mg PO Q6H Amoxicillin 250 Mg/5 Ml Susp 1 Tsp PO TID 10 Days Ibuprofen 600 Mg Tablet 600 Mg PO Q6H Tylenol Arthritis (Acetaminophen) 650 Mg Tablet.er 650 Mg PO HS Assessment/Pt Instructions test Discharge Instructions Discharge Diet: No Restrictions, Regular Diet Discharge Physical Examination Allergies: Coded Allergies: No Known Drug Allergies (Unverified , 05/23/21) Discharge Summary Date of Admission Date of Discharge Discharge Diagnosis (1) Hip fracture, left Status: Acute Assessment & Plan: TO OR IN AM Qualifiers: Qualified Codes: S72.002A - Fracture of unspecified part of neck of left femur, initial encounter for closed fracture (2) Fall Status: Acute Assessment & Plan: BED ALARM ORDERED FOR NURSING Qualifiers: Qualified Codes: W19.XXXA - Unspecified fall, initial encounter (3) S/P appy Status: Acute Assessment & Plan: TESTING (4) Gall bladder inflammation Status: Acute (5) Anemia Status: Acute Qualifiers: Qualified Codes: D52.0 - Dietary folate deficiency anemia (6) Acute ND Qualifiers: Qualified Codes: I21.02 - ST elevation (STEMI) myocardial infarction involving left anterior descending coronary artery (7) Chest pain Qualifiers: ALETHA HERRON MD, RESIDENT Aug 13, 2023 10:00
== END 2023-08-04 ==
LOC: ER 08:19 → SDC 09:42 → ICU 10:42 → ER 08-04 09:46
DX: S93.402A Sprain of unspecified ligament of left ankle, initial encounter (principal); T50.901A Poisoning by unspecified drugs, medicaments and biological substances, accidental (unintentional), initial encounter; F41.9 Anxiety disorder, unspecified; F32.A Depression, unspecified; Z87.891 Personal history of nicotine dependence; X58.XXXA Exposure to other specified factors, initial encounter
CPT/HCPCS: 87040; 87088; 91300